=== PATIENT | female | born 1975 | race Caucasian/White ===

== ENCOUNTER 2017-08-03 20:02 | Emergency (ER) | payer SELFPAY ==
[~2017-08-03] VITALS: Ht 167.6 cm; Wt 92.5 kg
--- NOTE | 2017-08-03 20:38 | ED Upper Extremity ---
General Chief Complaint: Upper Extremity Stated Complaint: L ARM PAIN Nursing Triage Note: PATIENT STATES THAT SHE HAD 2 SEIZURES TODAY. THE LAST ONE WAS WITNESSED BY THE FAMILY MEMBERS AND THEY STATES THAT SHE WAS "SQUEEZED AND LOWERED TO THE FLOOR. " THEY ARE UNSURE HOW SHE INJURED HER ARM. PATIENT STATES SHE HAS PAIN IN HER LEFT ARM FROM HER SHOULDER TO HER FINGER TIPS. MOTHER ALSO STATES THEY ARE VERY UNHAPPY THAT SHE DOES NOT QUALIFY FOR DISABILITY. Nursing Sepsis Screen: No Definite Risk (LANA BURTON) Source: patient Exam Limitations: no limitations (HARLEY BHANDARI MD) History of Present Illness Date Seen by Provider: August 03, 2017 Time Seen by Provider: 20:37 Initial Comments To ER with complaints of left arm pain. She reports having 2 seizures today one at approximately 5 this morning and one at 5 this evening. She thinks the pain is from her nephew's turning her to her side during her seizure. She reports that she had been taking Briviact 50 mg that was prescribed in [place] but has recently moved to [facility] and ran out of that yesterday. She was seen at [facility] today around 5:30 was prescribed Dep[address]ote by Dr. Kaba and took her first dose this evening. Severity: mild Pain/Injury Location: left arm, left forearm Method of Injury: unknown Modifying Factors: Improves With Immobilization (LANA BURTON) Pain/Injury Location: left shoulder Method of Injury: other (associated with seizure and being assisted to ground by family members) (HARLEY BHANDARI MD) Allergies and Home Medications Allergies Coded Allergies: No Known Drug Allergies (Unverified , 08/03/17) Home Medications Hydrocodone/Acetaminophen 1 Each Tablet, 1 EACH PO Q4H PRN for PAIN-MODERATE TO SEVERE Prescribed by: LUCY WYNN on 08/03/17 0967 Patient Home Medication List Home Medication List Reviewed: Yes (LANA BURTON) Constitutional: see HPI EENTM: see HPI Respiratory: see HPI Cardiovascular: see HPI Gastrointestinal: see HPI Genitourinary: see HPI Musculoskeletal: see HPI, other (left arm pain) Skin: see HPI Psychiatric/Neurological: See HPI (follow him him) (LANA BURTON) Musculoskeletal: joint pain, muscle pain (HARLEY BHANDARI MD) All Other Systems Reviewed Negative Unless Noted: Yes (BERNOT,LANA STUDENT) Past Pvbpwbi-Jeqgfn-Htdjoo Hx Past Med/Social Hx: Reviewed Nursing Past Med/Soc Hx (LANA BURTON STUDENT) Patient Social History Alcohol Use: Denies Use Recreational Drug Use: No Smoking Status: Never a Smoker 2nd Hand Smoke Exposure: No Recent Foreign Travel: No Contact w/Someone Who Travel: No Recent Infectious Disease Expo: No Recent Hopitalizations: No Physical Abuse: No Sexual Abuse: No (LANA BURTON) Seasonal Allergies Seasonal Allergies: Yes (LANA BURTON STUDENT) Past Medical History Surgeries: Yes (UTERINE PROCEDURE) Respiratory: No Cardiac: No Neurological: Yes Seizure Disorder Genitourinary: No Gastrointestinal: No Musculoskeletal: No Endocrine: No HEENT: No Cancer: No Psychosocial: No Nursing Suicide Risk Score: 0 Blood Disorders: No (LANA BURTON STUDENT) Family Medical History Reviewed Nursing Family Hx (LANA BURTON) No Pertinent Family Hx (HARLEY BHANDARI MD) Physical Exam Vital Signs Vital Signs - First Documented 08/03/17 08/03/17 20:08 21:20 Temp 97.1 Pulse 83 Resp 18 B/P (MAP) 153/102 (119) Pulse Ox 96 O2 Delivery Nasal Cannula O2 Flow Rate 2.00 (HARLEY BHANDARI MD) Vital Signs Capillary Refill : Less Than 3 Seconds (LANA BURTON) General Appearance: WD/WN, no apparent distress HEENT: PERRL/EOMI, normal ENT inspection, TMs normal, pharynx normal Neck: non-tender, full range of motion, supple, normal inspection Cardiovascular: regular rate, rhythm, no edema, no gallop, no JVD, no murmur Respiratory: chest non-tender, lungs clear, normal breath sounds, no respiratory distress, no accessory muscle use Gastrointestinal: normal bowel sounds, non tender, soft, no organomegaly, no pulsatile mass Back: normal inspection, no CVA tenderness, no vertebral tenderness Shoulder: normal inspection (left), pain Elbow/Forearm: normal inspection (left), pain Wrist: Yes normal inspection (left), Yes pain Hand: normal inspection, Left Neurologic/Tendon: normal sensation, normal motor functions, normal tendon functions, responds to pain Neurologic/Psychiatric: no motor/sensory deficits, alert, normal mood/affect, oriented x 3 Skin: normal color, warm/dry Lymphatic: no adenopathy (LANA BURTON STUDENT) Shoulder: deformity (left bicep is flat in appearance and palpation), limited ROM, soft tissue tenderness Elbow/Forearm: Left, limited ROM (pain limited) Neurologic/Tendon: normal sensation, normal motor functions, normal tendon functions (HARLEY BHANDARI MD) Procedures/Interventions Patient Education: Explained Benefits, Explained Risks, Pt. Ack. Understanding Agreement on procedure with pt: Yes Breath Sounds per Auscultation: Clear Heart Sounds per Auscultation: Regular Airway Exam: Mouth opens >2 fingers, Neck Full Range of Motion, Visulation of Uvula Sedation Adminstration Time: 21:31 Total Time spent in CS 20 Re-examination Time: 22:20 Re-examination Tolerated procedure well without complications. No evidence of hypoxia or hypercarbia. Drinking water now and talking without difficulty. Versed total 5 mg IV and fentanyl total 150 g IV use for sedation. (HARLEY BHANDARI MD) Splinting and Joint Reduction : Pre-Proc Neuro Vasc Exam: normal Post-Proc Neuro Vasc Exam: normal Joint Reduction Site: shoulder (L) Reduction Attempts: 1 Pre-Procedure NV Exam: Yes post joint reduction film: joint reduced Progress under conscious sedation the joint was reduced. Patient was attached to a monitor and storage bin tender and end-tidal CO2 monitor.patient given initially 50 g of fentanyl and 2.5 mg of Versed. This did not achieve adequate sedation. She was then given an additional 2.5 mg of Versed and 50 g of fentanyl. She then required a third dose of 50 g of fentanyl. We were at this point able to reduce the shoulder with traction and external rotation. Post reduction films confirmed reduction. Distally she remains neurovascularly intact.He was placed in a shoulder immobilizer. RT in the room at this time.Dr. Bhandari in the room during the reduction at all times. Immobilizers: Large Shoulder (LUCY WYNN APRN) Progress/Results/Core Measures Results/Orders My Orders Orders - HARLEY BHANDARI MD Forearm, Left, 2 Views (08/03/17 20:39) Humerus, Left, 2 Views (08/03/17 20:39) Midazolam Injection (Versed Injection) (08/03/17 21:15) Fentanyl Injection (Sublimaze Injection (08/03/17 21:15) Fentanyl Injection (Sublimaze Injection (08/03/17 21:41) Shoulder, Left, 1 View (08/03/17 21:41) (HARLEY BHANDARI MD) Vital Signs/I&O 08/03/17 08/03/17 08/03/17 08/03/17 20:08 21:20 21:23 21:30 Temp 97.1 98.6 98.6 Pulse 83 82 84 Resp 18 20 20 B/P (MAP) 153/102 (119) 148/95 156/103 Pulse Ox 96 95 97 O2 Delivery Nasal Cannula Room Air Nasal Cannula O2 Flow Rate 2.00 2.00 08/03/17 08/03/17 08/03/17 08/03/17 21:40 21:50 22:00 22:10 Temp 98.6 97.9 97.9 98.6 Pulse 86 79 85 91 Resp 18 24 25 20 B/P (MAP) 131/85 117/72 120/81 132/93 Pulse Ox 97 94 98 95 O2 Delivery Nasal Cannula Nasal Cannula Nasal Cannula Room Air O2 Flow Rate 2.00 2.00 2.00 (HARLEY BHANDARI MD) Blood Pressure Mean: 119 Progress Progress Note : Progress Note Seen and evaluated the patient and agree with above except as indicated. I have directed the plan of care. Patient had seizure twice today including one time at the clinic. She is off her previous medicine and has started Depakote this evening. Complains of pain from the left neck through the left hand. Unable to really identify exactly where the pain is at this time but states a 10 out of 10. Requesting x-ray of her entire arm. We will get x-rays of the humerus and forearm which will allow evaluation of the joints above and below was well. 2100: Dislocation fracture left shoulder noted. Did discuss with the patient and family. She has elected for conscious sedation and reduction. Risks and benefits discussed and consent on chart. We will use fentanyl and Versed for sedation as this will provide adequate pain control and reduce seizure risk. I did discuss the case with Dr. Glover, on-call for [facility] and she will assist in follow-up at the clinic with the orthopedic practitioner there. Conscious sedation by me with reduction by Lucy Wynn APRN and Lana Burton APRN. (HARLEY BHANDARI MD) Diagnostic Imaging Diagonstic Imaging: Xray Plain Films/CT/US/NM/MRI: other Comments [place]IA [place], [place] NAME: MAURISIO BARNES [facility] REC#: [id number] PT STATUS: REG ER : 1975 PHYSICIAN: HARLEY BHANDARI MD ADMIT DATE: 08/03/17/ER Draft Date of Exam:08/03/17 HUMERUS, LEFT, 2 VIEWS INDICATION: Seizure Two views of the left humerus show anterior dislocation with a Hill-Sachs deformity of the proximal lateral humeral head. IMPRESSION: There is fracture dislocation present. Dictated on workstation # [id number] Dict: 08/03/172099 Trans: 08/03/172102 [facility] [id number] Interpreted by: CEDRICK LEE MD Electronically signed by: Reviewed: Reviewed by Me Diagonstic Imaging: Xray Plain Films/CT/US/NM/MRI: forearm Comments [place] NAME: MAURISIO BARNES [facility] REC#: [id number] PT STATUS: REG ER : 1975 PHYSICIAN: HARLEY BHANDARI MD ADMIT DATE: 08/03/17/ER Draft Date of Exam:08/03/17 FOREARM, LEFT, 2 VIEWS INDICATION: Seizure, left forearm pain. EXAMINATION: Two views of the left forearm were obtained. FINDINGS: No fracture, dislocation or other abnormality. IMPRESSION: Normal left forearm. Dictated on workstation # [id number] Dict: 08/03/172100 Trans: 08/03/172102 [facility] [id number] Interpreted by: CEDRICK LEE MD Electronically signed by: Reviewed: Reviewed by Me (HARLEY BHANDARI MD) Departure Impression Primary Impression: Closed anterior dislocation of left shoulder Qualified Codes: S43.015A - Anterior dislocation of left humerus, initial encounter Additional Impression: Hill Sachs deformity, left Disposition: 01 HOME, SELF-CARE Condition: Stable Departure-Patient Inst. Decision time for Depature: 21:45 (LUCY WYNN APRN) Referrals: DAPHNEY SOLIS MD (PCP/Family) Primary Care Physician Patient Instructions: Shoulder Dislocation Add. Discharge Instructions: 1. Keep the arm in the immobilizer at all times for one week or as directed otherwise by orthopedic nurse practitioner Sherwin Jones. [facility] will call you tomorrow to set up an appointment with Sherwin Jones for reevaluation of your shoulder. Take the pain medication as directed, ice packs to the shoulder at 1-2 hour intervals a couple of times per day. Pain medication as directed.All discharge instructions reviewed with patient and/or family. Voiced understanding. Scripts Hydrocodone/Acetaminophen ([place] 5-325 Tablet) 1 Each Tablet 1 EACH PO Q4H PRN for PAIN-MODERATE TO SEVERE, #14 TAB Prov: LUCY WYNN APRN 08/03/17 Copy Copies To 1: MARCE GLOVER TRAVIS STUDENT August 03, 2017 20:38 HARLEY BHANDARI MD August 03, 2017 21:21 LUCY WYNN APRN August 03, 2017 21:44
--- NOTE | 2017-08-03 21:03 | Diagnostic Imaging Report ---
INDICATION: Seizure, left forearm pain. EXAMINATION: Two views of the left forearm were obtained. FINDINGS: No fracture, dislocation or other abnormality. IMPRESSION: Normal left forearm. Dictated by: Dictated on workstation # [id number]
--- NOTE | 2017-08-03 21:03 | Diagnostic Imaging Report ---
INDICATION: Seizure Two views of the left humerus show anterior dislocation with a Hill-Sachs deformity of the proximal lateral humeral head. IMPRESSION: There is fracture dislocation present. Dictated by: Dictated on workstation # [id number]
[2017-08-03] MEDS ORDERED: fentaNYL INJECTION 100 MCG/2 ML AMP IVP ONE (21:15)
[2017-08-03] MEDS ORDERED: MIDAZOLAM 5 MG/5 ML (VERSED) VIAL IVP ONE (21:15)
[2017-08-03] MEDS ORDERED: fentaNYL INJECTION 100 MCG/2 ML AMP IVP STA (21:41)
[2017-08-03] MEDS ORDERED: HYDR-757 PO (21:47)
[2017-08-03] MEDS ORDERED: RX-HYDROCODONE/APAP 5/325 MG #4 TAB PK PO PRN (22:00)
[2017-08-03 22:48] VITALS: BP 129/86
--- NOTE | 2017-08-04 07:23 | Diagnostic Imaging Report ---
EXAM: SHOULDER, LEFT, 1 VIEW INDICATION: Left shoulder dislocation. COMPARISON: Humerus radiographs, 08/03/2017. FINDINGS: Interval reduction of the left humeral head which is now within the glenoid fossa. Large Hill-Sachs deformity. Mild widening of the acromioclavicular joints may represent a low grade AC separation. Soft tissue shadows are unremarkable. IMPRESSION: 1. Interval reduction of the left shoulder dislocation. 2. Large Hill-Sachs deformity. 3. Mild widening of the acromioclavicular joint may represent a low-grade separation. Dictated by: Dictated on workstation # [id number]
== END 2017-08-03 22:48 | disposition home or self-care (01) ==
LOC: EDUNIT# 20:02 → ER 20:05
DX: S43.015A Anterior dislocation of left humerus, initial encounter (principal); G40.909 Epilepsy, unspecified, not intractable, without status epilepticus; X58.XXXA Exposure to other specified factors, initial encounter
CPT/HCPCS: 23655; 73020; 73060; 73090; 93041; 96374; 96375

== ENCOUNTER 2018-01-13 19:42 | Emergency (ER) | payer MEDICAID, OTHER ==
[~2018-01-13] VITALS: Ht 167.6 cm; Wt 92.5 kg
[~2018-01-13 19:42] MED LIST: HYDR-4226 PO
--- OUTSIDE RECORDS SUMMARY | 2018-01-13 19:47 | XMS REPORT ---
Author Author DAPHNEY SOLIS [facility] Address [address] [place] [address] Care Team Providers Care Ammonia Box Operator Name Role Phone DAPHNEY SOLIS Unavailable PROBLEMS Type Condition ICD9-CM Code OPD44-GO Code Onset Dates Condition Status SNOMED Code Problem Seizure disorder G40.909 Active 937030712 ALLERGIES Substance Reaction Event Type Date Status Mila hives Drug Allergy Nov, Active ENCOUNTERS Encounter Location Date Diagnosis [place] [address] [address] Nov, Seizure disorder G40.909 [place] [address] [address] Nov, [place] [address] [address] Oct, Anterior dislocation of left shoulder, subsequent encounter S43.015D [place] [address] [address] Sep, Seizure disorder G40.909 [place] [address] [place] [id number] [place] [address] Sep, Seizure disorder G40.909 [place] [address] [place] [id number] [place] [address] Aug, Anterior dislocation of left shoulder, initial encounter S43.015A [facility] [address] [address] Aug, Abrasions of multiple sites T07.XXXA [place] [address] [address] Aug, Seizure disorder G40.909 [facility] [address] [id number] [id number] 13 Aug, 2017 Dental caries K02.9 [facility] [id number] [place] [id number] 06 Aug, 2017 Dental examination Z01.20 [facility] [id number] [place] [address] 04 Aug, 2017 Closed dislocation of left shoulder, initial encounter S43.005A and Seizure disorder G40.909 [facility] [id number] [place] [address] Aug, [facility] [id number] [place] [address] Aug, [facility] [id number] [place] [address] July, [facility] [id number] [place] [address] July, [facility] [address] [place] [address] July, Seizure disorder G40.909 [facility] [id number] [place] [address] July, Seizure disorder G40.909 [facility] [address] [place] [address] July, Seizure disorder G40.909 [facility] [address] [place] [address] July, Dental examination Z01.20 [facility] [id number] [place] [address] July, Viral upper respiratory tract infection J06.9 ; Disorder of teeth and supporting structures, unspecified K08.9 and Other chronic pain G89.29 [facility] [id number] [place] [address] Jun, [facility] [place] [facility] [address] [id number] [place] [address] 13 Jun, 2014 [facility] [place] [facility] [address] [id number] [place] [address] 10 Nov, 2011 [facility] [place] [facility] [address] [id number] [place] [address] 10 Oct, 2011 [facility] [place] [facility] [address] [id number] [place] [address] 14 Aug, 2011 [facility] [place] [facility] [address] [id number] [place] [address] 13 Aug, 2011 [facility] [place] [facility] [address] [id number] [place] [address] Aug, [facility] [place] [facility] [address] [id number] [place] [address] 08 Aug, 2011 [facility] [place] [facility] [address] [id number] [place] [address] 05 Aug, 2011 [facility] [place] [facility] [address] [id number] [place] [address] July, [facility] [place] [facility] [address] [id number] [place] [address] July, [facility] [place] [facility] [address] [id number] [place] [address] July, [facility] [place] [facility] [address] [id number] [place] [address] July, [facility] [place] [facility] [address] [id number] [place] [address] Jun, [facility] [place] [facility] [address] [id number] [place] [address] Jun, [facility] [place] [facility] [address] [id number] [place] [address] 08 Jun, 2011 [facility] [place] [facility] [address] [facility] [id number] [place] [address] Jun, [facility] [address] [facility] [id number], [place] [address] Jun, [facility] [address] [facility] [id number], [place] [address] Jun, [facility] [address] [facility] [id number], [place] [address] Jun, [facility] [address] [facility] [id number], [place] [address] Feb, IMMUNIZATIONS No Known Immunizations SOCIAL HISTORY Never Assessed REASON FOR VISIT f/u seizure medication Sherie SOTO, eeg & mri in on 12/06/17 Sherie SOTO, sleep study 12/08/17 HI Rehman MA PLAN OF CARE Activity Details Follow Up 3 Months Reason: VITAL SIGNS Height 66 in 2017-12-01 Weight 205 lbs 2017-12-01 Temperature 97.3 degrees Fahrenheit 2017-12-01 Heart Rate 78 bpm 2017-12-01 Respiratory Rate 18 2017-12-01 BMI 33.08 kg/m2 2017-12-01 Blood pressure systolic 124 mmHg 2017-12-01 Blood pressure diastolic 78 mmHg 2017-12-01 MEDICATIONS Medication Instructions Dosage Frequency Start Date End Date Duration Status Depakote 250 MG Orally 3 times a day 1 tablet 8h 30 Active Lamotrigine 100 mg Orally 2 times a day 2.5 tablets 12h 30 Active Lamotrigine 200 mg Orally Twice a day 1 tablet 12h 26 Nov, 2017 90 days Active RESULTS No Results PROCEDURES No Known procedures INSTRUCTIONS MEDICATIONS ADMINISTERED No Known Medications MEDICAL (GENERAL) HISTORY Type Description Date Medical History epilepsy Medical History seizures Surgical History 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
--- OUTSIDE RECORDS SUMMARY | 2018-01-13 19:47 | XMS REPORT ---
Author Author DAPHNEY SOLIS [facility] Address [address] [place] [address] Care Team Providers Care Ice Carver Name Role Phone DAPHNEY SOLIS Unavailable PROBLEMS Type Condition ICD9-CM Code RQU67-CI Code Onset Dates Condition Status SNOMED Code Problem Seizure disorder G40.909 Active 756776276 ALLERGIES No Information ENCOUNTERS Encounter Location Date Diagnosis [place] [address] [address] Jan, [place] [address] 9[address]- 7784 Jan, [place] [address] 18499- 4537 Jan, Viral gastroenteritis A08.4 [place] [address] 28551- 1634 Nov, Seizure disorder G40.909 [place] [address] [place] [id number] [place] [address] 23590- 4134 Nov, [place] [address] 38314- 2071 Oct, Anterior dislocation of left shoulder, subsequent encounter S43.015D [facility] [address] [place] [id number] [place] [address] 16298- 2514 Sep, Seizure disorder G40.909 [place] [address] [place] [place] [id number] [place] [address] 65386- 9960 Sep, Seizure disorder G40.909 [facility] [address] [place] [id number] [place] [address] 50552- 1251 Aug, Anterior dislocation of left shoulder, initial encounter S43.015A [facility] [address] [place] [address] 53717 -4412 16 Aug, 2017 Abrasions of multiple sites T07.XXXA [facility] [address] [place] [id number] [place] [address] 63677- 1505 15 Aug, 2017 Seizure disorder G40.909 [facility] [id number] [place] [address] [id number] 13 Aug, 2017 Dental caries K02.9 [facility] [address] [id number] [place] [address] [id number] 06 Aug, 2017 Dental examination Z01.20 [facility] [address] 65794- 8460 Aug, Closed dislocation of left shoulder, initial encounter S43.005A and Seizure disorder G40.909 [facility] [address] 61438- 3531 Aug, [facility] [address] [id number] [place] [address] 65100- 2706 Aug, [facility] [address] 86460- 7250 July, [facility] [address] [place] [id number] [place] [address] 58693- 6455 July, [facility] [address] [place] [id number] [place] [address] 78818- 8971 July, Seizure disorder G40.909 [facility] [address] [place] [id number] [place] [address] 00089- 4588 July, Seizure disorder G40.909 [facility] [address] [place] [id number] [place] [address] 10235- 1629 July, Seizure disorder G40.909 [facility] [address] [place] [id number] [place] [address] 10241- 4634 July, Dental examination Z01.20 [facility] [address] [facility] [id number] [address] 10 Jul, 2017 Viral upper respiratory tract infection J06.9 ; Disorder of teeth and supporting structures, unspecified K08.9 and Other chronic pain G89.29 [facility] [address] [facility] [id number] [place] [address]- 9911 14 Jun, 2014 [facility] [address] [facility] [id number] [place] [address]- 2598 13 Jun, 2014 [facility] [address] [facility] [id number] [place] [address]- 1025 10 Nov, 2011 [facility] [id number] [place] [address] 5359 10 Oct, 2011 [facility] [id number] [place] [address]- 2988 14 Aug, 2011 [facility] [id number] [place] [address]- 0346 13 Aug, 2011 [facility] [id number] [place] [address]- 3356 Aug, [facility] [address], [place] [address] 3200 08 Aug, 2011 [facility] [address] [address]- 5340 05 Aug, 2011 [facility] [address] [address]- 6567 July, [facility] [address] [place] [id number] [address] 3894 July, [facility] [address] 4[address] July, [facility] [address] [place] [id number] [address]- 6196 July, [facility] [address], [place] [address]- 4038 Jun, [facility] [address] [place] [id number] [address]- 2214 Jun, [facility] [address], [place] [address]- 4982 Jun, [facility] [id number] 2339 Jun, [facility] [address] [place] [id number] [place] [address] 615115- 8960 Jun, [facility] [address], [place] [address]- 2333 Jun, [facility] [address], [place] [address]- 3629 Jun, [facility] [address], [place] [address]- 5867 Feb, IMMUNIZATIONS No Known Immunizations SOCIAL HISTORY Never Assessed REASON FOR VISIT Medication question PLAN OF CARE VITAL SIGNS MEDICATIONS Unknown Medications RESULTS No Results PROCEDURES No Known procedures INSTRUCTIONS MEDICATIONS ADMINISTERED No Known Medications MEDICAL (GENERAL) HISTORY Type Description Date Medical History epilepsy Medical History seizures Surgical History 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
--- OUTSIDE RECORDS SUMMARY | 2018-01-13 19:47 | XMS REPORT ---
Author Author WILLIE DANG Organization [facility] Address [address] [place] [address] Care Team Providers Care Clay Pigeon Setter Name Role Phone WILLIE DANG Unavailable PROBLEMS Type Condition ICD9-CM Code [id number] Code Onset Dates Condition Status SNOMED Code Problem Seizure disorder G40.909 Active [id number] ALLERGIES Substance Reaction Event Type Date Status Mila hives Drug Allergy Jan, Active ENCOUNTERS Encounter Location Date Diagnosis [place] [id number] [address] Jan, Viral gastroenteritis A08.4 [facility] [address] 567[address]- 2695 Nov, Seizure disorder G40.909 [facility] [address] 93537- 2107 Nov, [facility] [address] 32822- 3040 Oct, Anterior dislocation of left shoulder, subsequent encounter S43.015D [place] [address] [place] [id number] [place] [address] 75332- 3782 Sep, Seizure disorder G40.909 [facility] [address] [place] [id number] [place] [address] 89971- 2420 Sep, Seizure disorder G40.909 [facility] [address] [place] [id number] [place] [address] 13562- 9915 Aug, Anterior dislocation of left shoulder, initial encounter S43.015A [facility] [address] [place] [id number] [place] [address] 25979 -9009 16 Aug, 2017 Abrasions of multiple sites T07.XXXA [place] [address] [place] [address] 36816- 3629 15 Aug, 2017 Seizure disorder G40.909 [facility] [address] [place] [id number] [place] [address] [id number] Aug, Dental caries K02.9 [facility] [address] [place] [id number] [place] [address] [id number] 06 Aug, 2017 Dental examination Z01.20 [facility] [address] [place] [id number] [place] [address] 76777- 4421 04 Aug, 2017 Closed dislocation of left shoulder, initial encounter S43.005A and Seizure disorder G40.909 [facility] [address] [place] [id number] [place] [address] 02600- 2209 Aug, [facility] [address] [place] [id number] [place] [address] 81950- 3716 Aug, [facility] [address] [place] [id number] [place] [address] 24220- 2538 July, [facility] [address] [place] [id number] [place] [address] 74104- 7472 July, [facility] [address] [place] [id number] [place] [address] 28955- 3355 July, Seizure disorder G40.909 [facility] [address] [place] [id number] [place] [address] 75161- 2730 July, Seizure disorder G40.909 [facility] [address] [place] [id number] [place] [address] 13220- 4677 July, Seizure disorder G40.909 [facility] [address] [place] [id number] [place] [address] 48279- 8333 July, Dental examination Z01.20 [facility] [address] [place] [address] 08388- 9191 July, Viral upper respiratory tract infection J06.9 ; Disorder of teeth and supporting structures, unspecified K08.9 and Other chronic pain G89.29 [facility] [address] [id number] [place] [address]- 4328 14 Jun, 2014 [facility] [address] [id number] [place] [address]- 6251 13 Jun, 2014 [facility] [address] [facility] [id number] [place] [address]- 2993 10 Nov, 2011 [facility] [address] [id number], [place] [address]- 4235 10 Oct, 2011 [facility] [address] [id number] [place] [address]- 9962 14 Aug, 2011 [facility] [address] [facility] [id number] [place] [address]- 9786 13 Aug, 2011 [facility] [address] [facility] [id number] [place] [address]- 8626 Aug, [facility] [address] [facility] [id number], [place] [address]- 5697 08 Aug, 2011 [facility] [address] [facility] [id number], [place] [address]- 5147 05 Aug, 2011 [facility] [address] [facility] [id number], [place] [address]- 4518 16 Jul, 2011 [facility] [address] [facility] [id number], [place] [address]- 7383 July, [facility] [address] [id number], [place] [address]- 7104 July, [facility] [place] [facility] [address] [facility] [id number], [place] [address]- 0978 July, [facility] [address] [facility] [id number], [place] [address]- 3427 11 Jun, 2011 [facility] [place] [facility] [address] [facility] [id number], [place] [address]- 5436 09 Jun, 2011 [facility] [address] [facility] [id number] [place] [address]- 7316 Jun, [facility] [address] [facility] [id number], [place] [address]- 5752 Jun, [facility] [address] [facility] [id number], [place] [address]- 9550 Jun, [facility] [address] [facility] [id number], [place] [address]- 2509 Jun, [facility] [address] [facility] [id number], [place] [address]- 8759 Jun, [facility] [address] [facility] [id number][place] 1425 Feb, IMMUNIZATIONS No Known Immunizations SOCIAL HISTORY Never Assessed REASON FOR VISIT vomiting, Constant throwing up, only ate once today and puked it up. - Michelet SOTO PLAN OF CARE VITAL SIGNS Height 66 in 2018-01-05 Weight 207 lbs 2018-01-05 Temperature 97.8 degrees Fahrenheit 2018-01-05 Heart Rate 79 bpm 2018-01-05 Respiratory Rate 20 2018-01-05 Oximetry 95 % 2018-01-05 BMI 33.41 kg/m2 2018-01-05 Blood pressure systolic 122 mmHg 2018-01-05 Blood pressure diastolic 70 mmHg 2018-01-05 MEDICATIONS Medication Instructions Dosage Frequency Start Date End Date Duration Status Zofran ODT 4 MG Orally every 4 hrs 1 tablet on the tongue and allow to dissolve as needed 4h Jan, Active Lamotrigine 200 mg Orally Twice a day 1 tablet 12h Nov, 90 days Active Depakote 250 MG Orally 3 times a day 1 tablet 8h 30 Active Lamotrigine 100 mg Orally 2 times a day 2.5 tablets 12h 30 Active RESULTS No Results PROCEDURES No Known procedures INSTRUCTIONS MEDICATIONS ADMINISTERED No Known Medications MEDICAL (GENERAL) HISTORY Type Description Date Medical History epilepsy Medical History seizures Surgical History 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
--- OUTSIDE RECORDS SUMMARY | 2018-01-13 19:47 | XMS REPORT ---
Author Author DAPHNEY SOLIS [facility] Address [address] [place] [address] Care Team Providers Care Brand Marketing Specialist Name Role Phone DAPHNEY SOLIS Unavailable PROBLEMS Type Condition ICD9-CM Code NTY86-SG Code Onset Dates Condition Status SNOMED Code Problem Seizure disorder G40.909 Active 268404902 ALLERGIES No Information ENCOUNTERS Encounter Location Date Diagnosis [place] [address] [address]- [address]80 Nov, Seizure disorder G40.909 [place] [address] 03284- 7558 Nov, [place] [address] 03388- 3964 Oct, Anterior dislocation of left shoulder, subsequent encounter S43.015D [place] [address] 78121- 8169 Sep, Seizure disorder G40.909 [facility] [address] 66[address]- 0359 Sep, Seizure disorder G40.909 [place] [address] 38515- 5980 Aug, Anterior dislocation of left shoulder, initial encounter S43.015A [facility] [address] 33147 -5344 16 Aug, 2017 Abrasions of multiple sites T07.XXXA [facility] [address] 18539- 5224 15 Aug, 2017 Seizure disorder G40.909 [facility] [address] [id number] 13 Aug, 2017 Dental caries K02.9 [facility] [address] [place] [address] [id number] 06 Aug, 2017 Dental examination Z01.20 [facility] [address] [address]- 3361 Aug, Closed dislocation of left shoulder, initial encounter S43.005A and Seizure disorder G40.909 [facility] [address] [place] [id number] [place] [address] 16704- 2516 Aug, [facility] [id number] [place] [address] 41845- 7506 Aug, [facility] [id number] [place] [address] 30314- 5643 July, [facility] [address] [id number] [place] [address] 86777- 8457 July, [facility] [address] [id number] [place] [address] 37224- 0969 July, Seizure disorder G40.909 [facility] [address] [place] [id number] [place] [address] 55283- 7530 July, Seizure disorder G40.909 [facility] [address] [address]- 1481 July, Seizure disorder G40.909 [facility] [address] [place] [address] 00648- 7935 July, Dental examination Z01.20 [facility] [address] [place] [address] 87857- 2615 July, Viral upper respiratory tract infection J06.9 ; Disorder of teeth and supporting structures, unspecified K08.9 and Other chronic pain G89.29 [facility] [address] [address]- 4486 Jun, [facility] [address] [place] [id number] [place] [address]- 8409 13 Jun, 2014 [facility] [address] [id number] [place] [address]- 4979 10 Nov, 2011 [facility] [address] [id number] [place] [address]- 0736 10 Oct, 2011 [facility] [address] [id number] [place] [address]- 1044 14 Aug, 2011 [facility] [address] [id number] [place] [address]- 2775 13 Aug, 2011 [facility] [address] [id number] [place] [address]- 3241 12 Aug, 2011 [facility] [address] [id number] [place] [address]- 7678 08 Aug, 2011 [facility] [address] [id number] [place] [address]- 3546 05 Aug, 2011 [facility] [address] [id number] [place] [address]- 4683 16 Jul, 2011 [facility] [address] [id number] [place] [address]- 9895 July, [facility] [address] [id number] [place] [address]- 8406 July, [facility] [address] [id number] [place] [address]- 0964 July, [facility] [address] [id number] [place] [address]- 6279 Jun, [facility] [address] [id number] [place] [address]- 3512 Jun, [facility] [address] [id number] [place] [address]- 6973 08 Jun, 2011 [facility] [address] [id number] [place] [address]- 3859 Jun, [facility] [address] [facility] [id number] [place] [address] 2546 Jun, [facility] [address] [facility] [id number] [address]- 2546 Jun, [facility] [address] [facility] [id number] [address]- 2546 Jun, [facility] [address] [facility] [id number] [place] [address]- 2546 Feb, IMMUNIZATIONS No Known Immunizations SOCIAL HISTORY Never Assessed REASON FOR VISIT Requests return call PLAN OF CARE VITAL SIGNS MEDICATIONS Medication Instructions Dosage Frequency Start Date End Date Duration Status Lamotrigine 100 mg Orally 2 times a day 1/2 tablet 12h 90 days Active Depakote 250 MG Orally 3 times a day 1 tablet 8h 90 days Active Lamotrigine 200 mg Orally Twice a day 1 tablet 12h Nov, 90 days Active RESULTS No Results PROCEDURES No Known procedures INSTRUCTIONS MEDICATIONS ADMINISTERED No Known Medications MEDICAL (GENERAL) HISTORY Type Description Date Medical History epilepsy Medical History seizures Surgical History 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
--- OUTSIDE RECORDS SUMMARY | 2018-01-13 19:47 | XMS REPORT ---
Author Author DAPHNEY SOLIS [facility] Address [address] [place] [address] Care Team Providers Care Mail Forwarding System Markup Clerk Name Role Phone DAPHNEY SOLIS Unavailable PROBLEMS Type Condition ICD9-CM Code ZUW88-EQ Code Onset Dates Condition Status SNOMED Code Problem Seizure disorder G40.909 Active [id number] ALLERGIES No Information ENCOUNTERS Encounter Location Date Diagnosis [place] [address] [address]- [address] Jan, [place] [address] 35347- 7966 Jan, [place] [address] 46910- 6151 Jan, Viral gastroenteritis A08.4 [place] [address] 59350- 7960 Nov, Seizure disorder G40.909 [place] [address] [place] [id number] [place] [address] 73007- 7641 Nov, [place] [address] 54850- 7504 Oct, Anterior dislocation of left shoulder, subsequent encounter S43.015D [facility] [address] [place] [id number] [place] [address] 99462- 5774 Sep, Seizure disorder G40.909 [place] [address] [place] [id number] [place] [address] 77335- 2911 Sep, Seizure disorder G40.909 [facility] [address] [place] [id number] [place] [address] 76961- 9997 Aug, Anterior dislocation of left shoulder, initial encounter S43.015A [facility] [address] [place] [address] 04860 -3383 16 Aug, 2017 Abrasions of multiple sites T07.XXXA [facility] [address] [place] [id number] [place] [address] 90529- 7208 15 Aug, 2017 Seizure disorder G40.909 [facility] [address] [place] [id number] [place] [address] [id number] 13 Aug, 2017 Dental caries K02.9 [facility] [address] [place] [id number] [place] [address] [id number] 06 Aug, 2017 Dental examination Z01.20 [facility] [address] 77967- 1983 Aug, Closed dislocation of left shoulder, initial encounter S43.005A and Seizure disorder G40.909 [facility] [address] 37530- 7666 Aug, [facility] [address] [place] [id number] [place] [address] 10134- 2052 Aug, [facility] [address] 45244- 5609 July, [facility] [address] [place] [id number] [place] [address] 35661- 1124 July, [facility] [address] [place] [id number] [place] [address] 85555- 6717 July, Seizure disorder G40.909 [facility] [address] [place] [id number] [place] [address] 47994- 2596 July, Seizure disorder G40.909 [facility] [address] [place] [id number] [place] [address] 55158- 3721 July, Seizure disorder G40.909 [facility] [address] [place] [id number] [place] [address] 13004- 8299 July, Dental examination Z01.20 [facility] [address] [facility] [id number] [address] 1582 10 Jul, 2017 Viral upper respiratory tract infection J06.9 ; Disorder of teeth and supporting structures, unspecified K08.9 and Other chronic pain G89.29 [facility] [address] [facility] [id number] [place] [address]- 0053 14 Jun, 2014 [facility] [address] [facility] [id number] [place] [address]- 5989 13 Jun, 2014 [facility] [address] [facility] [id number] [place] [address]- 0309 10 Nov, 2011 [facility] [id number] [place] [address]- 1052 10 Oct, 2011 [facility] [id number] [place] [address]- 6954 14 Aug, 2011 [facility] [id number] [place] [address]- 6722 13 Aug, 2011 [facility] [id number] [address]- 5205 Aug, [facility] [address] [address]- 7862 08 Aug, 2011 [facility] [address] [address]- 8662 05 Aug, 2011 [facility] [address] [address]- 5171 July, [facility] [address] [id number] [address]- 4594 July, [facility] [address] 0764 July, [facility] [address] [place] [id number] [address]- 5846 July, [facility] [address] [address]- 1534 Jun, [facility] [address] [id number] [address]- 2402 Jun, [facility] [address] [address]- 8673 Jun, [facility] [address] [address]- 0480 Jun, [facility] [address] [place] [id number] [place] [address] 82726- 4681 Jun, [facility] [address] [address]- 6651 Jun, [facility] [address] [address]- 1532 Jun, [facility] [address], [place] [address]- 1470 Feb, IMMUNIZATIONS No Known Immunizations SOCIAL HISTORY Never Assessed REASON FOR VISIT Urgent nurse call PLAN OF CARE VITAL SIGNS MEDICATIONS Unknown Medications RESULTS No Results PROCEDURES No Known procedures INSTRUCTIONS MEDICATIONS ADMINISTERED No Known Medications MEDICAL (GENERAL) HISTORY Type Description Date Medical History epilepsy Medical History seizures Surgical History 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
--- OUTSIDE RECORDS SUMMARY | 2018-01-13 19:48 | XMS REPORT ---
Author Author DAPHNEY SOLIS [facility] Address [address] [place] [address] Care Team Providers Care Director Patient Financial Services Name Role Phone DAPHNEY SOLIS Unavailable PROBLEMS Type Condition ICD9-CM Code YJC47-FT Code Onset Dates Condition Status SNOMED Code Problem Seizure disorder G40.909 Active [id number] ALLERGIES No Information ENCOUNTERS Encounter Location Date Diagnosis [address] [address]- 2098 Oct, Anterior dislocation of left shoulder, subsequent encounter S43.015D [address] 16899- 7964 Sep, Seizure disorder G40.909 [facility] [address] 34699- 3546 Sep, Seizure disorder G40.[address] 49112- 0851 Aug, Anterior dislocation of left shoulder, initial encounter S43.015A [facility] [address] 41233 -8264 16 Aug, 2017 Abrasions of multiple sites T07.XXXA [facility] [address] [place] [id number] [place] [address] 17558- 7702 15 Aug, 2017 Seizure disorder G40.909 [facility] [address] [id number] 13 Aug, 2017 Dental caries K02.9 [facility] [address] [id number] 06 Aug, 2017 Dental examination Z01.20 [facility] [address] [place] [address]- 2945 Aug, Closed dislocation of left shoulder, initial encounter S43.005A and Seizure disorder G40.909 [facility] [address] [place] [id number] [place] [address] 75084- 9232 Aug, [facility] [address] [place] [id number] [place] [address] 45054- 6542 Aug, [facility] [address] [place] [id number] [place] [address] 84114- 3443 July, [facility] [address] [place] [id number] [place] [address] 84648- 9592 July, [facility] [address] [place] [id number] [place] [address] 06177- 0263 July, Seizure disorder G40.909 [facility] [address] [place] [id number] [place] [address] 67784- 7629 July, Seizure disorder G40.909 [facility] [address] [place] [id number] [place] [address] 87894- 0010 July, Seizure disorder G40.909 [facility] [address] [place] [id number] [place] [address] 47776- 6841 July, Dental examination Z01.20 [facility] [address] [place] [id number] [place] [address] 34998- 8858 July, Viral upper respiratory tract infection J06.9 ; Disorder of teeth and supporting structures, unspecified K08.9 and Other chronic pain G89.29 [facility] [address] [place] [id number] [place] [address] 81758- 6835 Jun, [facility] [address] [place] [id number] [place] [address] 26543- 9958 Jun, [facility] [address] [place] [address] 84722- 2759 10 Nov, 2011 [facility] [address] [place] [id number] [place] [address] 84898- 9101 Oct, [facility] [address] [id number] [place] [address]- 2080 14 Aug, 2011 [facility] [place] [facility] [address] [id number] [place] [address]- 2254 13 Aug, 2011 [facility] [place] [facility] [address] [id number] [place] [address]- 4530 Aug, [facility] [place] [facility] [address] [id number] [place] [address]- 9944 08 Aug, 2011 [facility] [place] [facility] [address] [id number] [place] [address]- 2716 Aug, [facility] [place] [facility] [address] [id number] [place] [address]- 6461 July, [facility] [place] [facility] [address] [id number] [place] [address]- 4920 July, [facility] [place] [facility] [address] [id number] [place] [address]- 5925 July, [facility] [place] [facility] [address] [id number] [place] [address]- 7688 July, [facility] [place] [facility] [address] [id number] [place] [address]- 0477 Jun, [facility] [place] [facility] [address] [id number] [place] [address]- 2366 Jun, [facility] [place] [facility] [address] [id number] [place] [address]- 5490 Jun, [facility] [place] [facility] [address] [id number] [place] [address]- 3142 Jun, [facility] [place] [facility] [address] [id number] [place] [address]- 9533 Jun, [facility] [place] [facility] [address] [id number] [place] [address]- 3311 Jun, [facility] [place] [facility] [address] [facility] [id number] [place] [address]- 5417 Jun, [facility] [address] [facility] [id number]- 7550 Feb, IMMUNIZATIONS No Known Immunizations SOCIAL HISTORY Never Assessed REASON FOR VISIT PLAN OF CARE VITAL SIGNS MEDICATIONS Medication Instructions Dosage Frequency Start Date End Date Duration Status Depakote 250 MG Orally 3 times a day 1 tablet 8h July, Active RESULTS No Results PROCEDURES No Known procedures INSTRUCTIONS MEDICATIONS ADMINISTERED No Known Medications MEDICAL (GENERAL) HISTORY Type Description Date Medical History epilepsy Medical History seizures Surgical History 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
--- OUTSIDE RECORDS SUMMARY | 2018-01-13 19:48 | XMS REPORT ---
Author Author MIGUEL ROSS [facility] Address [address] [place] [address] Care Team Providers Care Electronic Components Assembler Name Role Phone MIGUEL ROSS Unavailable PROBLEMS Type Condition ICD9-CM Code IMK41-KR Code Onset Dates Condition Status SNOMED Code Problem Seizure disorder G40.909 Active [id number] ALLERGIES Substance Reaction Event Type Date Status Mila hives Drug Allergy Aug, Active ENCOUNTERS Encounter Location Date Diagnosis [place] [address] [address]- 1856 Oct, Anterior dislocation of left shoulder, subsequent encounter S43.015D [facility] [address] 77622- 1795 Sep, Seizure disorder G40.909 [facility] [address] 32980- 6650 Sep, Seizure disorder G40.909 [place] [address] 01672- 3111 Aug, Anterior dislocation of left shoulder, initial encounter S43.015A [facility] [address] [place] [id number] [place] [address] 64726 -2569 Aug, Abrasions of multiple sites T07.XXXA [facility] [address] 63620- 5190 15 Aug, 2017 Seizure disorder G40.909 [facility] [address] [place] [id number] [place] [address] [id number] 13 Aug, 2017 Dental caries K02.9 [facility] [address] [id number] Aug, Dental examination Z01.20 [facility] [address] [address]- 2417 Aug, Closed dislocation of left shoulder, initial encounter S43.005A and Seizure disorder G40.909 [facility] [address] [address]- 0580 Aug, [facility] [address] [place] [id number] [place] [address] 12803- 5152 Aug, [facility] [address] [place] [id number] [place] [address] 54231- 1200 July, [facility] [address] [place] [id number] [place] [address] 50024- 0861 July, [facility] [address] [place] [id number] [place] [address] 31775- 4676 July, Seizure disorder G40.909 [facility] [address] [place] [id number] [place] [address] 84305- 7923 July, Seizure disorder G40.909 [facility] [address] [place] [id number] [place] [address] 90234- 0840 July, Seizure disorder G40.909 [facility] [address] [place] [address] 49431- 6352 July, Dental examination Z01.20 [facility] [address] [id number] [address]- 0919 July, Viral upper respiratory tract infection J06.9 ; Disorder of teeth and supporting structures, unspecified K08.9 and Other chronic pain G89.29 [facility] [address] [place] [id number] [place] [address] 52772- 0445 Jun, [facility] [address] [address]- 9149 Jun, [facility] [address] [place] [id number] [place] [address] 82331- 2310 10 Nov, 2011 [facility] [place] [facility] [address] [id number] [place] [address]- 5127 Oct, [facility] [place] [facility] [address] [id number] [place] [address]- 0815 14 Aug, 2011 [facility] [place] [facility] [address] [id number] [place] [address]- 6054 Aug, [facility] [place] [facility] [address] [id number] [place] [address]- 6908 Aug, [facility] [place] [facility] [address] [id number] [place] [address]- 9639 Aug, [facility] [place] [facility] [address] [id number] [place] [address]- 7775 Aug, [facility] [place] [facility] [address] [id number] [place] [address]- 8330 July, [facility] [place] [facility] [address] [id number] [place] [address]- 1086 July, [facility] [place] [facility] [address] [id number] [place] [address]- 9525 July, [facility] [place] [facility] [address] [id number] [place] [address]- 7139 July, [facility] [place] [facility] [address] [id number] [place] [address]- 3339 Jun, [facility] [place] [facility] [address] [id number], [place] [address]- 2773 Jun, [facility] [place] [facility] [address] [id number] [place] [address]- 9526 Jun, [facility] [place] [facility] [address] [id number] [place] [address]- 7914 Jun, [facility] [place] [facility] [address] [id number] [place] [address]- 2646 Jun, [facility] [place] [facility] [address] [facility] [id number] [place] [address]- 7335 Jun, [facility] [address] [facility] [id number] [place] [address]- 9477 Jun, [facility] [address] [facility] [id number] [place] 1122 Feb, IMMUNIZATIONS No Known Immunizations SOCIAL HISTORY Never Assessed REASON FOR VISIT Fell at [employer] and thinks whoever owns this parking lot needs to pay for her fall [employer] PLAN OF CARE Activity Details Follow Up prn Reason: VITAL SIGNS Height 66 in 2017-08-19 Weight 198.6 lbs 2017-08-19 Temperature 97.8 degrees Fahrenheit 2017-08-19 Heart Rate 76 bpm 2017-08-19 Respiratory Rate 20 2017-08-19 BMI 32.05 kg/m2 2017-08-19 Blood pressure systolic 140 mmHg 2017-08-19 Blood pressure diastolic 90 mmHg 2017-08-19 MEDICATIONS Medication Instructions Dosage Frequency Start Date End Date Duration Status Hydrocodone-Acetaminophen 5-325 MG Orally 3 times a day 1 tablet as needed 8h Aug, Not-Taking Lamotrigine 100 MG Orally 2 times a day 2.5 tablets 12h Active Amoxicillin 500 mg Orally every 8 hrs 1 capsule 8h 07 days Active Depakote 500 mg Orally 2 times a day 1 12h July, Active Divalproex Sodium ER Active RESULTS No Results PROCEDURES No Known procedures INSTRUCTIONS MEDICATIONS ADMINISTERED No Known Medications MEDICAL (GENERAL) HISTORY Type Description Date Medical History epilepsy Medical History seizures Surgical History 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
--- OUTSIDE RECORDS SUMMARY | 2018-01-13 19:48 | XMS REPORT ---
Author Author DAPHNEY SOLIS [facility] Address [address] [place] [address] Care Team Providers Care Story Reader Name Role Phone DAPHNEY SOLIS Unavailable PROBLEMS Type Condition ICD9-CM Code AIY81-AS Code Onset Dates Condition Status SNOMED Code Problem Seizure disorder G40.909 Active 565756099 ALLERGIES No Information ENCOUNTERS Encounter Location Date Diagnosis [address] [address]- [address] Oct, Anterior dislocation of left shoulder, subsequent encounter S43.015D [address] [address]- 6433 Sep, Seizure disorder G40.909 [facility] [address] [address]- 4338 Sep, Seizure disorder G40.[address] 86[address]- 4619 Aug, Anterior dislocation of left shoulder, initial encounter S43.015A [facility] [address] [address] -3583 16 Aug, 2017 Abrasions of multiple sites T07.XXXA [facility] [address] [place] [id number] [place] [address] 63308- 7285 15 Aug, 2017 Seizure disorder G40.909 [facility] [address] [id number] 13 Aug, 2017 Dental caries K02.9 [facility] [address] [id number] 06 Aug, [address] [facility] [address] [place] [address]- 7930 Aug, Closed dislocation of left shoulder, initial encounter S43.005A and Seizure disorder G40.909 [facility] [id number] [place] [address] 06660- 6838 Aug, [facility] [id number] [place] [address] 25327- 4697 Aug, [facility] [id number] [place] [address] 68179- 6801 July, [facility] [id number] [place] [address] 26614- 4684 July, [facility] [id number] [place] [address] 33085- 8561 July, Seizure disorder G40.909 [facility] [address] [place] [place] [id number] [place] [address] 13382- 1228 July, Seizure disorder G40.909 [facility] [id number] [place] [address] 55241- 5580 July, Seizure disorder G40.909 [facility] [address] [place] [place] [id number] [place] [address] 96192- 5076 July, Dental examination Z01.20 [facility] [id number] [place] [address] 27579- 2893 July, Viral upper respiratory tract infection J06.9 ; Disorder of teeth and supporting structures, unspecified K08.9 and Other chronic pain G89.29 [facility] [id number] [place] [address] 02635- 5939 Jun, [facility] [id number] [place] [address] 91779- 4011 Jun, [facility] [address] [place] [address] 57211- 9866 10 Nov, 2011 [facility] [id number] [place] [address] 46460- 1012 Oct, [facility] [address] [id number] [place] [address]- 8299 14 Aug, 2011 [facility] [place] [facility] [address] [id number] [place] [address]- 8463 13 Aug, 2011 [facility] [place] [facility] [address] [id number] [place] [address]- 4174 Aug, [facility] [place] [facility] [address] [id number] [place] [address]- 5276 08 Aug, 2011 [facility] [place] [facility] [address] [id number] [place] [address]- 7592 Aug, [facility] [place] [facility] [address] [id number] [place] [address]- 4633 July, [facility] [place] [facility] [address] [id number] [place] [address]- 6564 July, [facility] [place] [facility] [address] [id number] [place] [address]- 2248 July, [facility] [place] [facility] [address] [id number] [place] [address]- 6273 July, [facility] [place] [facility] [address] [id number] [place] [address]- 4334 Jun, [facility] [place] [facility] [address] [id number] [place] [address]- 6979 Jun, [facility] [place] [facility] [address] [id number] [place] [address] Jun, [facility] [place] [facility] [address] [id number] [place] [address] Jun, [facility] [place] [facility] [address] [id number] [place] [address] Jun, [facility] [place] [facility] [address] [id number] [place] [address] Jun, [facility] [place] [facility] [address] [facility] [id number] [place] [id number] Jun, [facility] [address] [facility] [id number] [place] [id number] Feb, IMMUNIZATIONS No Known Immunizations SOCIAL HISTORY Never Assessed REASON FOR VISIT Repository Medication/samples PLAN OF CARE VITAL SIGNS MEDICATIONS Medication Instructions Dosage Frequency Start Date End Date Duration Status Lamotrigine 100 mg Orally 2 times a day 2.5 tablets 12h 30 days Active RESULTS No Results PROCEDURES No Known procedures INSTRUCTIONS MEDICATIONS ADMINISTERED No Known Medications MEDICAL (GENERAL) HISTORY Type Description Date Medical History epilepsy Medical History seizures Surgical History 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
--- OUTSIDE RECORDS SUMMARY | 2018-01-13 19:48 | XMS REPORT ---
Author Author DAPHNEY SOLIS [facility] Address [address] [place] [address] Care Team Providers Care Group Therapy Counselor Name Role Phone DAPHNEY SOLIS Unavailable PROBLEMS Type Condition ICD9-CM Code [id number] Code Onset Dates Condition Status SNOMED Code Problem Seizure disorder G40.909 Active 157274397 ALLERGIES Substance Reaction Event Type Date Status Mila hives Drug Allergy Aug, Active ENCOUNTERS Encounter Location Date Diagnosis [place] [address] [address] Oct, Anterior dislocation of left shoulder, subsequent encounter S43.015D [place] [address] [address] Sep, Seizure disorder G40.909 [facility] [address] [address] Sep, Seizure disorder G40.909 [place] [address] [address]- [address] Aug, Anterior dislocation of left shoulder, initial encounter S43.015A [facility] [address] [address] 16 Aug, 2017 Abrasions of multiple sites T07.XXXA [facility] [address] [address]- [address] 15 Aug, 2017 Seizure disorder G40.909 [facility] [address] [id number] 13 Aug, 2017 Dental caries K02.9 [facility] [address] [id number] 06 Aug, [address] [facility] [address] [address] Aug, Closed dislocation of left shoulder, initial encounter S43.005A and Seizure disorder G40.909 [facility] [address] [address] Aug, [facility] [address] [place] [id number] [place] [address]99- 9051 Aug, [facility] [address] [place] [id number] [place] [address]- 4420 July, [facility] [address] [place] [id number] [place] [address] 78559- 5011 July, [facility] [address] [place] [address] 95267- 8601 July, Seizure disorder G40.909 [facility] [address] [place] [id number] [place] [address] 15986- 9362 July, Seizure disorder G40.909 [facility] [address] [place] [id number] [place] [address] 49778- 7565 July, Seizure disorder G40.909 [facility] [address] [place] [address] 99624- 0253 July, Dental examination Z01.20 [facility] [address] [address] July, Viral upper respiratory tract infection J06.9 ; Disorder of teeth and supporting structures, unspecified K08.9 and Other chronic pain G89.29 [facility] [address] [place] [address] 42617- 4104 Jun, [facility] [address] [place] [id number] [place] [address] 24115- 5836 Jun, [facility] [address] [place] [address] 81863- 2733 Nov, [facility] [place] [facility] [address] [id number] [place] [address]- 6222 Oct, [facility] [place] [facility] [address] [id number] [place] [address]- 5957 14 Aug, 2011 [facility] [place] [facility] [address] [id number] [place] [address]- 6344 Aug, [facility] [place] [facility] [address] [id number] [place] [address]- 4252 Aug, [facility] [place] [facility] [address] [id number] [place] [address]- 2536 Aug, [facility] [place] [facility] [address] [id number] [place] [address]- 8926 Aug, [facility] [place] [facility] [address] [id number] [place] [address]- 6677 July, [facility] [place] [facility] [address] [id number] [place] [address]- 4936 July, [facility] [place] [facility] [address] [id number] [place] [address]- 8115 July, [facility] [place] [facility] [address] [id number] [place] [address]- 0096 July, [facility] [place] [facility] [address] [id number] [place] [address]- 5317 Jun, [facility] [place] [facility] [address] [id number] [place] [address]- 1053 Jun, [facility] [place] [facility] [address] [id number] [place] [address]- 6923 Jun, [facility] [place] [facility] [address] [id number] [place] [address]- 2639 Jun, [facility] [place] [facility] [address] [id number] [place] [address]- 8235 05 Jun, 2011 [facility] [place] [facility] [address] [id number] [place] [address] 101[address] Jun, [facility] [address] [facility] [id number] [place] [address] 25[address] Jun, [facility] [address] [facility] [id number] [place] [address]- 2546 Feb, IMMUNIZATIONS No Known Immunizations SOCIAL HISTORY Never Assessed REASON FOR VISIT [facility] Follow Up, PT had a siezer while here at [facility] and fell off of the table top dislocating her left shoulder on Monday-Darryl SOTO PT says while living in [place] she had a CAT scan showing multiple white spots on her Brain PLAN OF CARE Activity Details Follow Up 4 Weeks Reason: VITAL SIGNS Height 66 in 2017-08-07 Weight 200.8 lbs 2017-08-07 Temperature 98.8 degrees Fahrenheit 2017-08-07 Heart Rate 72 bpm 2017-08-07 Respiratory Rate 20 2017-08-07 BMI 32.41 kg/m2 2017-08-07 Blood pressure systolic 124 mmHg 2017-08-07 Blood pressure diastolic 78 mmHg 2017-08-07 MEDICATIONS Medication Instructions Dosage Frequency Start Date End Date Duration Status Depakote 500 mg Orally 2 times a day 1 12h July, Active Hydrocodone-Acetaminophen 5-325 MG Orally 3 times a day 1 tablet as needed 8h Aug, Active Lamotrigine 100 MG Orally 2 times a day 2.5 tablets 12h Active Briviact 50 mg Orally 2 times a day 1 tablet 12h 07 days Not-Taking RESULTS No Results PROCEDURES No Known procedures INSTRUCTIONS MEDICATIONS ADMINISTERED No Known Medications MEDICAL (GENERAL) HISTORY Type Description Date Medical History epilepsy Medical History seizures Surgical History 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
--- OUTSIDE RECORDS SUMMARY | 2018-01-13 19:48 | XMS REPORT ---
Author Author MYLES BAKER [facility] Address [address] [place] [address] Care Team Providers Care Terra Cotta Mold Maker Name Role Phone MYLES BAKER Unavailable PROBLEMS Type Condition ICD9-CM Code NLX47-OX Code Onset Dates Condition Status SNOMED Code Problem Seizure disorder G40.909 Active 389224277 ALLERGIES No Information ENCOUNTERS Encounter Location Date Diagnosis [address] [address] Oct, Anterior dislocation of left shoulder, subsequent encounter S43.015D [address] [address]- 2577 Sep, Seizure disorder G40.909 [facility] [address] [address]- [address] Sep, Seizure disorder G40.[address] [address]- [address]87 Aug, Anterior dislocation of left shoulder, initial encounter S43.015A [facility] [address] [address] 16 Aug, 2017 Abrasions of multiple sites T07.XXXA [facility] [address] [place] [id number] [place] [address] 26340- 8932 15 Aug, 2017 Seizure disorder G40.909 [facility] [address] [id number] 13 Aug, 2017 Dental caries K02.9 [facility] [address] [id number] 06 Aug, 2017 Dental examination Z01.20 [facility] [address] [place] [address]- 0939 Aug, Closed dislocation of left shoulder, initial encounter S43.005A and Seizure disorder G40.909 [facility] [address] [place] [id number] [place] [address] 60341- 5452 Aug, [facility] [address] [place] [id number] [place] [address] 28934- 6180 Aug, [facility] [address] [place] [id number] [place] [address] 01772- 4543 July, [facility] [address] [place] [id number] [place] [address] 54600- 6421 July, [facility] [address] [place] [id number] [place] [address] 40558- 0732 July, Seizure disorder G40.909 [facility] [address] [place] [id number] [place] [address] 47450- 4980 July, Seizure disorder G40.909 [facility] [address] [place] [id number] [place] [address] 78549- 6335 July, Seizure disorder G40.909 [facility] [address] [place] [id number] [place] [address] 82175- 8724 July, Dental examination Z01.20 [facility] [address] [place] [id number] [place] [address] 95317- 2599 July, Viral upper respiratory tract infection J06.9 ; Disorder of teeth and supporting structures, unspecified K08.9 and Other chronic pain G89.29 [facility] [address] [place] [id number] [place] [address] 90784- 1182 Jun, [facility] [address] [place] [id number] [place] [address] 18568- 4760 Jun, [facility] [address] [place] [address] 07394- 0415 10 Nov, 2011 [facility] [address] [place] [id number] [place] [address] 54965- 3846 Oct, [facility] [address] [id number] [place] [address]- 9849 14 Aug, 2011 [facility] [place] [facility] [address] [id number] [place] [address]- 7156 13 Aug, 2011 [facility] [place] [facility] [address] [id number] [place] [address]- 4348 Aug, [facility] [place] [facility] [address] [id number] [place] [address]- 2348 08 Aug, 2011 [facility] [place] [facility] [address] [id number] [place] [address]- 7539 Aug, [facility] [place] [facility] [address] [id number] [place] [address]- 1203 July, [facility] [place] [facility] [address] [id number] [place] [address]- 9162 July, [facility] [place] [facility] [address] [id number] [place] [address]- 7808 July, [facility] [place] [facility] [address] [id number] [place] [address]- 2397 July, [facility] [place] [facility] [address] [id number] [place] [address]- 8380 Jun, [facility] [place] [facility] [address] [id number] [place] [address]- 3857 Jun, [facility] [place] [facility] [address] [id number] [place] [address]- 2278 Jun, [facility] [place] [facility] [address] [id number] [place] [address]- 1119 Jun, [facility] [place] [facility] [address] [id number] [place] [address]- 6129 Jun, [facility] [place] [facility] [address] [id number] [place] [address]- 0484 Jun, [facility] [place] [facility] [address] [facility] [id number] [place] [address]- 0328 Jun, [facility] [address] [facility] [id number] [place] [address]- 6338 Feb, IMMUNIZATIONS No Known Immunizations SOCIAL HISTORY Never Assessed REASON FOR VISIT f/u Leila Antunez MA PLAN OF CARE Activity Details Follow Up prn Reason: VITAL SIGNS Height 66 in 2017-10-12 Blood pressure systolic 106 mmHg 2017-10-12 Blood pressure diastolic 78 mmHg 2017-10-12 MEDICATIONS Unknown Medications RESULTS No Results PROCEDURES No Known procedures INSTRUCTIONS MEDICATIONS ADMINISTERED No Known Medications MEDICAL (GENERAL) HISTORY Type Description Date Medical History epilepsy Medical History seizures Surgical History 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
--- OUTSIDE RECORDS SUMMARY | 2018-01-13 19:48 | XMS REPORT ---
Author Author ELDER RED [facility] Address Unknown Care Team Providers Care Electrification Adviser Name Role Phone ELDER RED Unavailable PROBLEMS Type Condition ICD9-CM Code YSY68-BS Code Onset Dates Condition Status SNOMED Code Problem Seizure disorder G40.909 Active 559332919 ALLERGIES Substance Reaction Event Type Date Status Mila hives Drug Allergy Aug, Active ENCOUNTERS Encounter Location Date Diagnosis [place] [address] [address] Oct, Anterior dislocation of left shoulder, subsequent encounter S43.015D [place] [address] [address]- 4358 Sep, Seizure disorder G40.909 [facility] [address] 72574- 8298 Sep, Seizure disorder G40.909 [place] [address] 48631- 0683 Aug, Anterior dislocation of left shoulder, initial encounter S43.015A [facility] [address] [address] -[address] 16 Aug, 2017 Abrasions of multiple sites T07.XXXA [facility] [address] [place] [id number] [place] [address] 92344- 9433 15 Aug, 2017 Seizure disorder G40.909 [facility] [address] [place] [id number] [place] [address] [id number] Aug, Dental caries K02.9 [facility] [address] [place] [id number] [place] [address] [id number] 06 Aug, 2017 Dental examination Z01.20 [facility] [address] [id number] [address]- 9083 Aug, Closed dislocation of left shoulder, initial encounter S43.005A and Seizure disorder G40.909 [facility] [address] [place] [id number] [place] [address] 06719- 8452 Aug, [facility] [address] [place] [id number] [place] [address] 27240- 5907 Aug, [facility] [address] [place] [id number] [place] [address] 33237- 3481 July, [facility] [address] [place] [id number] [place] [address] 11274- 4252 July, [facility] [address] [place] [id number] [place] [address] 25030- 5061 July, Seizure disorder G40.909 [facility] [address] [place] [id number] [place] [address] 61618- 2194 July, Seizure disorder G40.909 [facility] [address] [place] [id number] [place] [address] 28151- 6036 July, Seizure disorder G40.909 [facility] [address] [place] [id number] [place] [address] 53457- 4861 July, Dental examination Z01.20 [facility] [address] [place] [address] 13179- 7440 July, Viral upper respiratory tract infection J06.9 ; Disorder of teeth and supporting structures, unspecified K08.9 and Other chronic pain G89.29 [facility] [address] [place] [id number] [place] [address] 51821- 0671 Jun, [facility] [address] [place] [id number] [place] [address] 81387- 8199 Jun, [facility] [address] [place] [address] 50060- 2730 Nov, [facility] [address] [place] [id number] [place] [address], [place] [address]- 6647 10 Oct, 2011 [facility] [place] [facility] [address] [id number] [place] [address]- 1660 14 Aug, 2011 [facility] [place] [facility] [address] [id number] [place] [address]- 2336 13 Aug, 2011 [facility] [place] [facility] [address] [id number] [place] [address]- 0254 Aug, [facility] [place] [facility] [address] [id number] [place] [address]- 7697 08 Aug, 2011 [facility] [place] [facility] [address] [id number] [place] [address]- 5007 Aug, [facility] [place] [facility] [address] [id number] [place] [address]- 0227 July, [facility] [place] [facility] [address] [id number] [place] [address]- 0101 July, [facility] [place] [facility] [address] [id number] [place] [address]- 9993 July, [facility] [place] [facility] [address] [id number] [place] [address]- 6659 July, [facility] [place] [facility] [address] [id number] [place] [address]- 3438 Jun, [facility] [place] [facility] [address] [id number] [place] [address]- 1944 Jun, [facility] [place] [facility] [address] [id number] [place] [address]- 6989 Jun, [facility] [place] [facility] [address] [id number] [place] [address]- 6033 Jun, [facility] [place] [facility] [address] [id number] [place] [address]- 7025 Jun, [facility] [place] [facility] [address] [id number] [place] [address]- 2796 Jun, [facility] [place] [facility] [address] [facility] [id number] [place] [address]- 3457 Jun, [facility] [address] [facility] [id number], [place] [address]- 6450 Feb, IMMUNIZATIONS No Known Immunizations SOCIAL HISTORY Never Assessed REASON FOR VISIT te PLAN OF CARE Activity Details Follow Up prn Reason:STEPHANIE VITAL SIGNS Height 66 in 2017-08-16 Blood pressure systolic 138 mmHg 2017-08-16 Blood pressure diastolic 80 mmHg 2017-08-16 MEDICATIONS Medication Instructions Dosage Frequency Start Date End Date Duration Status Briviact 50 mg Orally 2 times a day 1 tablet 12h 07 days Not-Taking Amoxicillin 500 mg Orally every 8 hrs 1 capsule 8h 07 days Active Depakote 500 mg Orally 2 times a day 1 12h July, Active Lamotrigine 100 MG Orally 2 times a day 2.5 tablets 12h Active Divalproex Sodium ER Active Hydrocodone-Acetaminophen 5-325 MG Orally 3 times a day 1 tablet as needed 8h 04 Aug, 2017 Not-Taking RESULTS No Results PROCEDURES Procedure Date Ordered Result Body Site SURG REMOVAL ERUPTED TOOTH August 16, 2017 SURG REMOVAL ERUPTED TOOTH August 16, 2017 INSTRUCTIONS MEDICATIONS ADMINISTERED No Known Medications MEDICAL (GENERAL) HISTORY Type Description Date Medical History epilepsy Medical History seizures Surgical History 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
--- OUTSIDE RECORDS SUMMARY | 2018-01-13 19:48 | XMS REPORT ---
Author Author SHERWIN BAKER [facility] Address [address] [place] [address] Care Team Providers Care Learning Disabled Teacher Name Role Phone SHERWIN BAKER Unavailable PROBLEMS Type Condition ICD9-CM Code XLB57-XD Code Onset Dates Condition Status SNOMED Code Problem Seizure disorder G40.909 Active 604411315 ALLERGIES No Information ENCOUNTERS Encounter Location Date Diagnosis [address] [address] Oct, Anterior dislocation of left shoulder, subsequent encounter S43.015D [address] [address]- 4552 Sep, Seizure disorder G40.909 [facility] [address] [address]- 7351 Sep, Seizure disorder G40.[address] 125[address]- 4279 Aug, Anterior dislocation of left shoulder, initial encounter S43.015A [facility] [address] [address]0109 16 Aug, 2017 Abrasions of multiple sites T07.XXXA [facility] [address] [place] [id number] [place] [address] 05189- 2888 15 Aug, 2017 Seizure disorder G40.909 [facility] [address] [id number] 13 Aug, 2017 Dental caries K02.9 [facility] [address] [id number] 06 Aug, 2017 Dental examination Z01.20 [facility] [address] [place] [address]- 0067 Aug, Closed dislocation of left shoulder, initial encounter S43.005A and Seizure disorder G40.909 [facility] [address] [place] [id number] [place] [address] 89199- 9932 Aug, [facility] [address] [place] [id number] [place] [address] 22296- 0352 Aug, [facility] [address] [place] [id number] [place] [address] 45186- 7096 July, [facility] [address] [place] [id number] [place] [address] 78146- 8792 July, [facility] [address] [place] [id number] [place] [address] 76765- 4003 July, Seizure disorder G40.909 [facility] [address] [id number] [place] [address] 49172- 0563 July, Seizure disorder G40.909 [facility] [id number] [place] [address] 39775- 0493 July, Seizure disorder G40.909 [facility] [address] [id number] [place] [address] 04227- 5486 July, Dental examination Z01.20 [facility] [address] [place] [id number] [place] [address] 11091- 7265 July, Viral upper respiratory tract infection J06.9 ; Disorder of teeth and supporting structures, unspecified K08.9 and Other chronic pain G89.29 [facility] [id number] [place] [address] 09445- 4080 Jun, [facility] [id number] [place] [address] 87422- 5026 Jun, [facility] [address] [place] [address] 41386- 9583 10 Nov, 2011 [facility] [address] [id number] [place] [address] 75747- 1667 Oct, [facility] [address] [id number] [place] [address]- 4107 14 Aug, 2011 [facility] [place] [facility] [address] [id number] [place] [address]- 5725 13 Aug, 2011 [facility] [place] [facility] [address] [id number] [place] [address]- 5396 Aug, [facility] [place] [facility] [address] [id number] [place] [address]- 3977 08 Aug, 2011 [facility] [place] [facility] [address] [id number] [place] [address]- 7853 Aug, [facility] [place] [facility] [address] [id number] [place] [address]- 0172 July, [facility] [place] [facility] [address] [id number] [place] [address]- 4674 July, [facility] [place] [facility] [address] [id number] [place] [address]- 3878 July, [facility] [place] [facility] [address] [id number] [place] [address]- 3980 July, [facility] [place] [facility] [address] [id number] [place] [address]- 9999 Jun, [facility] [place] [facility] [address] [id number] [place] [address] Jun, [facility] [place] [facility] [address] [id number] [place] [address] Jun, [facility] [place] [facility] [address] [id number] [place] [address] Jun, [facility] [place] [facility] [address] [id number] [place] [address] Jun, [facility] [place] [facility] [address] [id number] [place] [address] Jun, [facility] [place] [facility] [address] [facility] [id number] [place] [address] Jun, [facility] [address] [facility] [id number] [place] [address] Feb, IMMUNIZATIONS No Known Immunizations SOCIAL HISTORY Never Assessed REASON FOR VISIT shoulder dislocation Consult. 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
--- OUTSIDE RECORDS SUMMARY | 2018-01-13 19:48 | XMS REPORT ---
Author Author DAPHNEY SOLIS [facility] Address [address] [place] [address] Care Team Providers Care Teacher Adventure Education Name Role Phone DAPHNEY SOLIS Unavailable PROBLEMS Type Condition ICD9-CM Code VSX06-XG Code Onset Dates Condition Status SNOMED Code Problem Seizure disorder G40.909 Active 716296422 ALLERGIES No Information ENCOUNTERS Encounter Location Date Diagnosis [address] [address] Oct, Anterior dislocation of left shoulder, subsequent encounter S43.015D [address] [address] Sep, Seizure disorder G40.909 [facility] [address] [address] Sep, Seizure disorder G40.[address] [address]- [address] Aug, Anterior dislocation of left shoulder, initial encounter S43.015A [facility] [address] [address] 16 Aug, 2017 Abrasions of multiple sites T07.XXXA [facility] [id number] [place] [address]- 4839 15 Aug, 2017 Seizure disorder G40.909 [facility] [address] [id number] 13 Aug, 2017 Dental caries K02.9 [facility] [address] [id number] 06 Aug, 2017 Dental examination Z01.20 [facility] [address] [place] [address] Aug, Closed dislocation of left shoulder, initial encounter S43.005A and Seizure disorder G40.909 [facility] [id number] [place] [address] 12174- 0496 Aug, [facility] [id number] [place] [address] 23313- 1335 Aug, [facility] [id number] [place] [address] 45118- 3861 July, [facility] [id number] [place] [address] 64475- 3208 July, [facility] [id number] [place] [address] 88498- 2775 July, Seizure disorder G40.909 [facility] [id number] [place] [address] 41766- 6317 July, Seizure disorder G40.909 [facility] [id number] [place] [address] 26823- 0604 July, Seizure disorder G40.909 [facility] [id number] [place] [address] 63079- 7275 July, Dental examination Z01.20 [facility] [id number] [place] [address] 00898- 4208 July, Viral upper respiratory tract infection J06.9 ; Disorder of teeth and supporting structures, unspecified K08.9 and Other chronic pain G89.29 [facility] [id number] [place] [address] 39419- 4375 Jun, [facility] [id number] [place] [address] 50965- 8467 Jun, [facility] [address] [place] [address] 28511- 6453 10 Nov, 2011 [facility] [id number] [place] [address] 22315- 6473 Oct, [facility] [address] [id number] [place] [address]- 0767 14 Aug, 2011 [facility] [place] [facility] [address] [id number] [place] [address]- 0596 13 Aug, 2011 [facility] [place] [facility] [address] [id number] [place] [address]- 4915 Aug, [facility] [place] [facility] [address] [id number] [place] [address]- 4180 08 Aug, 2011 [facility] [place] [facility] [address] [id number] [place] [address]- 7046 Aug, [facility] [place] [facility] [address] [id number] [place] [address]- 3563 July, [facility] [place] [facility] [address] [id number] [place] [address]- 5790 July, [facility] [place] [facility] [address] [id number] [place] [address]- 2324 July, [facility] [place] [facility] [address] [id number] [place] [address]- 6161 July, [facility] [place] [facility] [address] [id number] [place] [address]- 5620 Jun, [facility] [place] [facility] [address] [id number] [place] [address]- 5675 Jun, [facility] [place] [facility] [address] [id number] [place] [address]- 8064 Jun, [facility] [place] [facility] [address] [id number] [place] [address]- 9145 Jun, [facility] [place] [facility] [address] [id number] [place] [address]- 4335 Jun, [facility] [place] [facility] [address] [id number] [place] [address]- 3995 Jun, [facility] [place] [facility] [address] [facility] [id number] [place] [address] [address] Jun, [facility] [address] [facility] [id number] [address] Feb, IMMUNIZATIONS No Known Immunizations SOCIAL HISTORY Never Assessed REASON FOR VISIT Requests return call PLAN OF CARE VITAL SIGNS MEDICATIONS Medication Instructions Dosage Frequency Start Date End Date Duration Status Depakote 250 MG Orally 3 times a day 1 8h July, 30 days Active RESULTS No Results PROCEDURES No Known procedures INSTRUCTIONS MEDICATIONS ADMINISTERED No Known Medications MEDICAL (GENERAL) HISTORY Type Description Date Medical History epilepsy Medical History seizures Surgical History 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
--- OUTSIDE RECORDS SUMMARY | 2018-01-13 19:49 | XMS REPORT ---
Author Author DAPHNEY SOLIS [facility] Address [address] [place] [address] Care Team Providers Care Prototype Engineer Name Role Phone DAPHNEY SOLIS Unavailable PROBLEMS Type Condition ICD9-CM Code PEJ58-XI Code Onset Dates Condition Status SNOMED Code Problem Seizure disorder G40.909 Active [id number] ALLERGIES Substance Reaction Event Type Date Status Mila hives Drug Allergy July, Active ENCOUNTERS Encounter Location Date Diagnosis [facility] [address] [place] [address] 12604- 59[address] Oct, Anterior dislocation of left shoulder, subsequent encounter S43.015D [place] [address] [address] Sep, Seizure disorder G40.909 [facility] [address] [address]- 4277 Sep, Seizure disorder G40.909 [place] [address] [address]- 110[address] Aug, Anterior dislocation of left shoulder, initial encounter S43.015A [facility] [address] [address] 16 Aug, 2017 Abrasions of multiple sites T07.XXXA [facility] [address] [address]- [address] 15 Aug, 2017 Seizure disorder G40.909 [facility] [address] [id number] 13 Aug, 2017 Dental caries K02.9 [facility] [address] [id number] 06 Aug, 2017 Dental examination Z01.20 [facility] [address] [address] 28[address] Aug, Closed dislocation of left shoulder, initial encounter S43.005A and Seizure disorder G40.909 [facility] [address] [address]- 7212 Aug, [facility] [id number] [place] [address] 21558- 2135 Aug, [facility] [id number] [place] [address] 03605- 5015 July, [facility] [id number] [place] [address] 03962- 2200 July, [facility] [address] [place] [address] 20508- 7194 July, Seizure disorder G40.909 [facility] [id number] [place] [address] 26789- 6776 July, Seizure disorder G40.909 [facility] [id number] [place] [address] 34520- 7030 July, Seizure disorder G40.909 [facility] [address] [place] [address] 22102- 6692 July, Dental examination Z01.20 [facility] [address] [address]- 3365 July, Viral upper respiratory tract infection J06.9 ; Disorder of teeth and supporting structures, unspecified K08.9 and Other chronic pain G89.29 [facility] [address] [place] [address] 54590- 1877 Jun, [facility] [id number] [place] [address] 45291- 3509 Jun, [facility] [address] [place] [address] 49732- 9494 Nov, [facility] [place] [facility] [address] [id number] [place] [address]- 1131 Oct, [facility] [place] [facility] [address] [id number] [place] [address]- 0942 14 Aug, 2011 [facility] [place] [facility] [address] [id number] [place] [address]- 7746 Aug, [facility] [place] [facility] [address] [id number] [place] [address]- 4929 Aug, [facility] [place] [facility] [address] [id number] [place] [address]- 6448 Aug, [facility] [place] [facility] [address] [id number] [place] [address]- 2865 Aug, [facility] [place] [facility] [address] [id number] [place] [address]- 7145 July, [facility] [place] [facility] [address] [id number] [place] [address]- 5590 July, [facility] [place] [facility] [address] [id number] [place] [address]- 7311 July, [facility] [place] [facility] [address] [id number] [place] [address]- 7779 July, [facility] [place] [facility] [address] [id number] [place] [address]- 7596 Jun, [facility] [place] [facility] [address] [id number] [place] [address]- 2239 Jun, [facility] [place] [facility] [address] [id number] [place] [address]- 7729 Jun, [facility] [place] [facility] [address] [id number] [place] [address]- 6846 Jun, [facility] [place] [facility] [address] [id number] [place] [address]- 7380 05 Jun, 2011 [facility] [place] [facility] [address] [id number] [place] [address]- 5026 Jun, [facility] [address] [facility] [id number] [place] [address]- 2546 Jun, [facility] [address] [facility] [id number] [place] [address]- 2546 Feb, IMMUNIZATIONS No Known Immunizations SOCIAL HISTORY Never Assessed REASON FOR VISIT Establish Care, Dep of health stated the PT needed a Physical first to recieve a medical card and help. PT seems to be very upset due to her recently leaving her and living with her sister-Darryl SOTO PLAN OF CARE Activity Details Follow Up 3 Months Reason: VITAL SIGNS Height 66 in 2017-07-21 Weight 204.9 lbs 2017-07-21 Temperature 98.3 degrees Fahrenheit 2017-07-21 Heart Rate 76 bpm 2017-07-21 Respiratory Rate 18 2017-07-21 Oximetry 98 % 2017-07-21 BMI 33.07 kg/m2 2017-07-21 Blood pressure systolic 108 mmHg 2017-07-21 Blood pressure diastolic 72 mmHg 2017-07-21 MEDICATIONS Medication Instructions Dosage Frequency Start Date End Date Duration Status Lamotrigine 100 MG Orally 2 times a day 2.5 tablets 12h Active Briviact 50 MG Orally 2 times a day 1 tablet 12h Active RESULTS No Results PROCEDURES No Known procedures INSTRUCTIONS MEDICATIONS ADMINISTERED No Known Medications MEDICAL (GENERAL) HISTORY Type Description Date Medical History epilepsy Medical History seizures Surgical History 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
--- OUTSIDE RECORDS SUMMARY | 2018-01-13 19:49 | XMS REPORT ---
Author Author DAPHNEY SOLIS [facility] Address [address] [place] [address] Care Team Providers Care Broomcorn Grader Name Role Phone DAPHNEY SOLIS Unavailable PROBLEMS Type Condition ICD9-CM Code BAG43-UM Code Onset Dates Condition Status SNOMED Code Problem Seizure disorder G40.909 Active [id number] ALLERGIES No Information ENCOUNTERS Encounter Location Date Diagnosis [address] [address] Oct, Anterior dislocation of left shoulder, subsequent encounter S43.015D [address] [address]- 8743 Sep, Seizure disorder G40.909 [facility] [address] [address]- 0957 Sep, Seizure disorder G40.[address] 133[address]- 9892 Aug, Anterior dislocation of left shoulder, initial encounter S43.015A [facility] [address] [address] 16 Aug, 2017 Abrasions of multiple sites T07.XXXA [facility] [id number] [place] [address] 96710- 7491 15 Aug, 2017 Seizure disorder G40.909 [facility] [address] [id number] 13 Aug, 2017 Dental caries K02.9 [facility] [address] [id number] 06 Aug, 2017 Dental examination Z01.20 [facility] [address] [place] [address]- 6620 Aug, Closed dislocation of left shoulder, initial encounter S43.005A and Seizure disorder G40.909 [facility] [id number] [place] [address] 67585- 6699 Aug, [facility] [id number] [place] [address] 03727- 3645 Aug, [facility] [id number] [place] [address] 36126- 5362 July, [facility] [id number] [place] [address] 75479- 0110 July, [facility] [id number] [place] [address] 58660- 6805 July, Seizure disorder G40.909 [facility] [id number] [place] [address] 40297- 0707 July, Seizure disorder G40.909 [facility] [id number] [place] [address] 81984- 5750 July, Seizure disorder G40.909 [facility] [id number] [place] [address] 68381- 3334 July, Dental examination Z01.20 [facility] [id number] [place] [address] 74775- 9454 July, Viral upper respiratory tract infection J06.9 ; Disorder of teeth and supporting structures, unspecified K08.9 and Other chronic pain G89.29 [facility] [id number] [place] [address] 54810- 6056 Jun, [facility] [id number] [place] [address] 09096- 8930 Jun, [facility] [address] [place] [address] 76835- 5845 10 Nov, 2011 [facility] [id number] [place] [address] 97631- 0413 Oct, [facility] [address] [id number] [place] [address]- 4800 14 Aug, 2011 [facility] [place] [facility] [address] [id number] [place] [address]- 7151 13 Aug, 2011 [facility] [place] [facility] [address] [id number] [place] [address]- 0807 Aug, [facility] [place] [facility] [address] [id number] [place] [address]- 8278 08 Aug, 2011 [facility] [place] [facility] [address] [id number] [place] [address]- 4734 Aug, [facility] [place] [facility] [address] [id number] [place] [address]- 5254 July, [facility] [place] [facility] [address] [id number] [place] [address]- 0047 July, [facility] [place] [facility] [address] [id number] [place] [address]- 7817 July, [facility] [place] [facility] [address] [id number] [place] [address]- 1350 July, [facility] [place] [facility] [address] [id number] [place] [address]- 5412 Jun, [facility] [place] [facility] [address] [id number] [place] [address]- 8291 Jun, [facility] [place] [facility] [address] [id number] [place] [address]- 0943 Jun, [facility] [place] [facility] [address] [id number] [place] [address]- 9884 Jun, [facility] [place] [facility] [address] [id number] [place] [address]- 8900 Jun, [facility] [place] [facility] [address] [id number] [place] [address]- 9128 Jun, [facility] [place] [facility] [address] [facility] [id number] [place] [address]- 6233 Jun, [facility] [address] [facility] [id number] [place] [address] 3161 Feb, IMMUNIZATIONS No Known Immunizations SOCIAL HISTORY Never Assessed REASON FOR VISIT PALS-briviact PLAN OF CARE VITAL SIGNS MEDICATIONS Medication Instructions Dosage Frequency Start Date End Date Duration Status Briviact 50 mg Orally 2 times a day 1 tablet 12h 90 days Active RESULTS No Results PROCEDURES No Known procedures INSTRUCTIONS MEDICATIONS ADMINISTERED No Known Medications MEDICAL (GENERAL) HISTORY Type Description Date Medical History epilepsy Medical History seizures Surgical History 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
--- OUTSIDE RECORDS SUMMARY | 2018-01-13 19:49 | XMS REPORT ---
Author Author DAPHNEY SOLIS [facility] Address [address] [place] [address] Care Team Providers Care Morphologist Name Role Phone DAPHNEY SOLIS Unavailable PROBLEMS Type Condition ICD9-CM Code [id number] Code Onset Dates Condition Status SNOMED Code Problem Seizure disorder G40.909 Active 276344423 ALLERGIES Substance Reaction Event Type Date Status Mila hives Drug Allergy July, Active ENCOUNTERS Encounter Location Date Diagnosis [address] [address] Oct, Anterior dislocation of left shoulder, subsequent encounter S43.015D [place] [address] [address]- 6597 Sep, Seizure disorder G40.909 [facility] [address] [address]- 1322 Sep, Seizure disorder G40.909 [place] [address] 61280- 9857 Aug, Anterior dislocation of left shoulder, initial encounter S43.015A [facility] [address] [address] -[address] 16 Aug, 2017 Abrasions of multiple sites T07.XXXA [facility] [address] [address]- 9001 15 Aug, 2017 Seizure disorder G40.909 [facility] [address] [id number] 13 Aug, 2017 Dental caries K02.9 [facility] [address] [id number] 06 Aug, 2017 Dental examination Z01.20 [facility] [address] [address]- 7152 Aug, Closed dislocation of left shoulder, initial encounter S43.005A and Seizure disorder G40.909 [facility] [address] [address]- 0650 Aug, [facility] [id number] [place] [address] 14792- 9286 Aug, [facility] [id number] [place] [address] 50547- 4977 July, [facility] [id number] [place] [address] 63149- 0020 July, [facility] [address] [place] [address] 71674- 8610 July, Seizure disorder G40.909 [facility] [id number] [place] [address] 21060- 9344 July, Seizure disorder G40.909 [facility] [id number] [place] [address] 21086- 1096 July, Seizure disorder G40.909 [facility] [address] [place] [address] 02139- 5844 July, Dental examination Z01.20 [facility] [address] [address]- 9885 July, Viral upper respiratory tract infection J06.9 ; Disorder of teeth and supporting structures, unspecified K08.9 and Other chronic pain G89.29 [facility] [address] [place] [address] 16602- 9215 Jun, [facility] [id number] [place] [address] 62395- 3378 Jun, [facility] [address] [place] [address] 58775- 3282 Nov, [facility] [place] [facility] [address] [id number] [place] [address]- 4148 Oct, [facility] [place] [facility] [address] [id number] [place] [address]- 8715 14 Aug, 2011 [facility] [place] [facility] [address] [id number] [place] [address]- 7745 Aug, [facility] [place] [facility] [address] [id number] [place] [address]- 9026 Aug, [facility] [place] [facility] [address] [id number] [place] [address]- 1793 Aug, [facility] [place] [facility] [address] [id number] [place] [address]- 3185 Aug, [facility] [place] [facility] [address] [id number] [place] [address]- 5758 July, [facility] [place] [facility] [address] [id number] [place] [address]- 6181 July, [facility] [place] [facility] [address] [id number] [place] [address]- 7154 July, [facility] [place] [facility] [address] [id number] [place] [address]- 4169 July, [facility] [place] [facility] [address] [id number] [place] [address]- 0793 Jun, [facility] [place] [facility] [address] [id number] [place] [address]- 5727 Jun, [facility] [place] [facility] [address] [id number] [place] [address]- 0128 Jun, [facility] [place] [facility] [address] [id number] [place] [address]- 6377 Jun, [facility] [place] [facility] [address] [id number] [place] [address]- 1958 05 Jun, 2011 [facility] [place] [facility] [address] [id number] [place] [address]- 2666 Jun, [facility] [address] [facility] [id number] [place] [address]- 2546 Jun, [facility] [address] [facility] [id number] [place] [address]- 2546 Feb, IMMUNIZATIONS No Known Immunizations SOCIAL HISTORY Never Assessed REASON FOR VISIT Seizure, Sister reports the PT had a seizure this morning 6:43am, it was noted that it did not last long. -Michelet SOTO , PT needs a disability note, PT needs refills through [facility] PLAN OF CARE Activity Details Follow Up prn Reason: VITAL SIGNS Height 66 in 2017-08-03 Weight 204.3 lbs 2017-08-03 Temperature 98.2 degrees Fahrenheit 2017-08-03 Heart Rate 76 bpm 2017-08-03 Respiratory Rate 18 2017-08-03 BMI 32.97 kg/m2 2017-08-03 Blood pressure systolic 120 mmHg 2017-08-03 Blood pressure diastolic 78 mmHg 2017-08-03 MEDICATIONS Medication Instructions Dosage Frequency Start Date End Date Duration Status Depakote 500 mg Orally 2 times a day 1 12h July, Active Briviact 50 mg Orally 2 times a day 1 tablet 12h 07 days Active Lamotrigine 100 MG Orally 2 times a day 2.5 tablets 12h Active RESULTS No Results PROCEDURES No Known procedures INSTRUCTIONS MEDICATIONS ADMINISTERED No Known Medications MEDICAL (GENERAL) HISTORY Type Description Date Medical History epilepsy Medical History seizures Surgical History 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
--- OUTSIDE RECORDS SUMMARY | 2018-01-13 19:49 | XMS REPORT ---
Author Author DAPHNEY SOLIS [facility] Address [address] [place] [address] Care Team Providers Care Major Assembly Lineman Name Role Phone DAPHNEY SOLIS Unavailable PROBLEMS Type Condition ICD9-CM Code GSF68-HG Code Onset Dates Condition Status SNOMED Code Problem Seizure disorder G40.909 Active 375514905 ALLERGIES No Information ENCOUNTERS Encounter Location Date Diagnosis [address] [address] Oct, Anterior dislocation of left shoulder, subsequent encounter S43.015D [address] [address] Sep, Seizure disorder G40.909 [facility] [address] [address] Sep, Seizure disorder G40.[address] [address]- 6[address] Aug, Anterior dislocation of left shoulder, initial encounter S43.015A [facility] [address] [address] 16 Aug, 2017 Abrasions of multiple sites T07.XXXA [facility] [address] [id number] [place] [address] 22793- 8621 15 Aug, 2017 Seizure disorder G40.909 [facility] [address] [id number] 13 Aug, 2017 Dental caries K02.9 [facility] [address] [id number] 06 Aug, 2017 Dental examination Z01.20 [facility] [address] [place] [address] Aug, Closed dislocation of left shoulder, initial encounter S43.005A and Seizure disorder G40.909 [facility] [id number] [place] [address] 86614- 6712 Aug, [facility] [id number] [place] [address] 52644- 4416 Aug, [facility] [id number] [place] [address] 52118- 7441 July, [facility] [id number] [place] [address] 48647- 0238 July, [facility] [id number] [place] [address] 88081- 7960 July, Seizure disorder G40.909 [facility] [id number] [place] [address] 00841- 1894 July, Seizure disorder G40.909 [facility] [id number] [place] [address] 80787- 0704 July, Seizure disorder G40.909 [facility] [id number] [place] [address] 77873- 6087 July, Dental examination Z01.20 [facility] [id number] [place] [address] 64666- 2157 July, Viral upper respiratory tract infection J06.9 ; Disorder of teeth and supporting structures, unspecified K08.9 and Other chronic pain G89.29 [facility] [id number] [place] [address] 42996- 4117 Jun, [facility] [id number] [place] [address] 56823- 8934 Jun, [facility] [id number] [place] [address] 58905- 4489 10 Nov, 2011 [facility] [id number] [place] [address] 56317- 1487 Oct, [facility] [address] [id number] [place] [address]- 6895 14 Aug, 2011 [facility] [place] [facility] [address] [id number] [place] [address]- 5895 13 Aug, 2011 [facility] [place] [facility] [address] [id number] [place] [address]- 3117 Aug, [facility] [place] [facility] [address] [id number] [place] [address]- 9209 08 Aug, 2011 [facility] [place] [facility] [address] [id number] [place] [address]- 7770 Aug, [facility] [place] [facility] [address] [id number] [place] [address]- 5850 July, [facility] [place] [facility] [address] [id number] [place] [address]- 8593 July, [facility] [place] [facility] [address] [id number] [place] [address]- 9929 July, [facility] [place] [facility] [address] [id number] [place] [address]- 1056 July, [facility] [place] [facility] [address] [id number] [place] [address]- 1875 Jun, [facility] [place] [facility] [address] [id number] [place] [address]- 9024 Jun, [facility] [place] [facility] [address] [id number] [place] [address]- 5294 Jun, [facility] [place] [facility] [address] [id number] [place] [address]- 2517 Jun, [facility] [place] [facility] [address] [id number] [place] [address]- 5439 Jun, [facility] [place] [facility] [address] [id number] [place] [address]- 1547 Jun, [facility] [place] [facility] [address] [facility] [id number] [place] [address]- 4266 Jun, [facility] [address] [facility] [id number] [address] Feb, IMMUNIZATIONS No Known Immunizations SOCIAL HISTORY [...]
--- OUTSIDE RECORDS SUMMARY | 2018-01-13 19:49 | XMS REPORT ---
Author Author DAPHNEY SOLIS [facility] Address [address] [place] [address] Care Team Providers Care Imposer Name Role Phone DPAHNEY SOLIS Unavailable PROBLEMS Type Condition ICD9-CM Code UWU21-RF Code Onset Dates Condition Status SNOMED Code Problem Seizure disorder G40.909 Active 803850512 ALLERGIES No Information ENCOUNTERS Encounter Location Date Diagnosis [address] [address] Oct, Anterior dislocation of left shoulder, subsequent encounter S43.015D [address] [address]- [address] Sep, Seizure disorder G40.909 [facility] [address] [address]- 77[address] Sep, Seizure disorder G40.[address] [address]- 0[address] Aug, Anterior dislocation of left shoulder, initial encounter S43.015A [facility] [address] [address] 16 Aug, 2017 Abrasions of multiple sites T07.XXXA [facility] [id number] [place] [address] 34385- 8753 15 Aug, 2017 Seizure disorder G40.909 [facility] [address] [id number] 13 Aug, 2017 Dental caries K02.9 [facility] [address] [id number] 06 Aug, 2017 Dental examination Z01.20 [facility] [address] [place] [address]- 3311 Aug, Closed dislocation of left shoulder, initial encounter S43.005A and Seizure disorder G40.909 [facility] [id number] [place] [address] 30662- 5909 Aug, [facility] [id number] [place] [address] 65705- 5235 Aug, [facility] [id number] [place] [address] 74610- 2928 July, [facility] [id number] [place] [address] 31589- 9195 July, [facility] [id number] [place] [address] 92883- 7165 July, Seizure disorder G40.909 [facility] [id number] [place] [address] 35586- 5206 July, Seizure disorder G40.909 [facility] [id number] [place] [address] 90452- 3764 July, Seizure disorder G40.909 [facility] [id number] [place] [address] 12872- 1117 July, Dental examination Z01.20 [facility] [id number] [place] [address] 58784- 4186 July, Viral upper respiratory tract infection J06.9 ; Disorder of teeth and supporting structures, unspecified K08.9 and Other chronic pain G89.29 [facility] [id number] [place] [address] 28081- 5455 Jun, [facility] [id number] [place] [address] 64418- 9240 Jun, [facility] [address] [place] [address] 65843- 0955 10 Nov, 2011 [facility] [id number] [place] [address] 19208- 5475 Oct, [facility] [address] [id number] [place] [address]- 6558 14 Aug, 2011 [facility] [place] [facility] [address] [id number] [place] [address]- 9471 13 Aug, 2011 [facility] [place] [facility] [address] [id number] [place] [address]- 9488 Aug, [facility] [place] [facility] [address] [id number] [place] [address]- 2220 08 Aug, 2011 [facility] [place] [facility] [address] [id number] [place] [address]- 2519 Aug, [facility] [place] [facility] [address] [id number] [place] [address]- 3218 July, [facility] [place] [facility] [address] [id number] [place] [address]- 9965 July, [facility] [place] [facility] [address] [id number] [place] [address]- 2163 July, [facility] [place] [facility] [address] [id number] [place] [address]- 1555 July, [facility] [place] [facility] [address] [id number] [place] [address]- 8101 Jun, [facility] [place] [facility] [address] [id number] [place] [address]- 0303 Jun, [facility] [place] [facility] [address] [id number] [place] [address]- 0115 Jun, [facility] [place] [facility] [address] [id number] [place] [address]- 9420 Jun, [facility] [place] [facility] [address] [id number] [place] [address]- 7267 Jun, [facility] [place] [facility] [address] [id number] [place] [address]- 2326 Jun, [facility] [place] [facility] [address] [facility] [id number] [place] [address]- 1857 Jun, [facility] [address] [facility] [id number], [place] [address]- 5533 Feb, IMMUNIZATIONS No Known Immunizations SOCIAL HISTORY Never Assessed REASON FOR VISIT Siezure PLAN OF CARE VITAL SIGNS MEDICATIONS Unknown Medications RESULTS No Results PROCEDURES No Known procedures INSTRUCTIONS MEDICATIONS ADMINISTERED No Known Medications MEDICAL (GENERAL) HISTORY Type Description Date Medical History epilepsy Medical History seizures Surgical History 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
--- OUTSIDE RECORDS SUMMARY | 2018-01-13 19:49 | XMS REPORT ---
Author Author DAPHNEY SOLIS [facility] Address [address] [place] [address] Care Team Providers Care Brand Ambassador Name Role Phone DAPHNEY SOLIS Unavailable PROBLEMS Type Condition ICD9-CM Code LZS98-CR Code Onset Dates Condition Status SNOMED Code Problem Seizure disorder G40.909 Active 654749611 ALLERGIES No Information ENCOUNTERS Encounter Location Date Diagnosis [address] [address] Oct, Anterior dislocation of left shoulder, subsequent encounter S43.015D [address] [address]- 9259 Sep, Seizure disorder G40.909 [facility] [address] [address]- 2080 Sep, Seizure disorder G40.[address] [address]- 1542 Aug, Anterior dislocation of left shoulder, initial encounter S43.015A [facility] [address] [address] 16 Aug, 2017 Abrasions of multiple sites T07.XXXA [facility] [id number] [place] [address] 42136- 8299 15 Aug, 2017 Seizure disorder G40.909 [facility] [address] [id number] 13 Aug, 2017 Dental caries K02.9 [facility] [address] [id number] 06 Aug, 2017 Dental examination Z01.20 [facility] [address] [place] [address]- 7747 Aug, Closed dislocation of left shoulder, initial encounter S43.005A and Seizure disorder G40.909 [facility] [id number] [place] [address] 58732- 0137 Aug, [facility] [id number] [place] [address] 68159- 7436 Aug, [facility] [id number] [place] [address] 22698- 0773 July, [facility] [id number] [place] [address] 46493- 0805 July, [facility] [id number] [place] [address] 36041- 8250 July, Seizure disorder G40.909 [facility] [id number] [place] [address] 24987- 0635 July, Seizure disorder G40.909 [facility] [id number] [place] [address] 79409- 8609 July, Seizure disorder G40.909 [facility] [id number] [place] [address] 69968- 4517 July, Dental examination Z01.20 [facility] [id number] [place] [address] 75855- 6986 July, Viral upper respiratory tract infection J06.9 ; Disorder of teeth and supporting structures, unspecified K08.9 and Other chronic pain G89.29 [facility] [id number] [place] [address] 58516- 8401 Jun, [facility] [id number] [place] [address] 74837- 8543 Jun, [facility] [address] [place] [address] 15089- 3735 10 Nov, 2011 [facility] [id number] [place] [address] 04516- 1530 Oct, [facility] [address] [id number] [place] [address]- 8840 14 Aug, 2011 [facility] [place] [facility] [address] [place] [address] [id number] [place] [address]- 9143 13 Aug, 2011 [facility] [place] [facility] [address] [place] [address] [id number] [place] [address]- 1940 Aug, [facility] [place] [facility] [address] [place] [address] [id number] [place] [address]- 3713 08 Aug, 2011 [facility] [place] [facility] [address] [place] [address] [id number] [place] [address]- 0015 Aug, [facility] [place] [facility] [address] [place] [address] [id number] [place] [address]- 2874 July, [facility] [place] [facility] [address] [place] [address] [id number] [place] [address]- 9025 July, [facility] [place] [facility] [address] [place] [address] [id number] [place] [address]- 7235 July, [facility] [place] [facility] [address] [place] [address] [id number] [place] [address]- 4588 July, [facility] [place] [facility] [address] [place] [address] [id number] [place] [address]- 6524 Jun, [facility] [place] [facility] [address] [place] [address] [id number] [place] [address]- 6634 Jun, [facility] [place] [facility] [address] [place] [address] [id number] [place] [address]- 2121 Jun, [facility] [place] [facility] [address] [place] [address] [id number] [place] [address]- 4233 Jun, [facility] [place] [facility] [address] [place] [address] [id number] [place] [address]- 3955 Jun, [facility] [place] [facility] [address] [place] [address] [id number] [place] [address]- 1104 Jun, [facility] [place] [facility] [address] [facility] [id number] [place] [address]- 0547 Jun, [facility] [address] [facility] [id number] [place] [address]- 1452 Feb, IMMUNIZATIONS No Known Immunizations SOCIAL HISTORY Never Assessed REASON FOR VISIT Meds too expensive PLAN OF CARE VITAL SIGNS MEDICATIONS Unknown Medications RESULTS No Results PROCEDURES No Known procedures INSTRUCTIONS MEDICATIONS ADMINISTERED No Known Medications MEDICAL (GENERAL) HISTORY Type Description Date Medical History epilepsy Medical History seizures Surgical History 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
--- OUTSIDE RECORDS SUMMARY | 2018-01-13 19:49 | XMS REPORT ---
Author Author ELDER RED [facility] Address Unknown Care Team Providers Care Funeral Home Attendant Name Role Phone ELDER RED Unavailable PROBLEMS Type Condition ICD9-CM Code [id number] Code Onset Dates Condition Status SNOMED Code Problem Seizure disorder G40.909 Active 290206086 ALLERGIES Substance Reaction Event Type Date Status Mila hives Drug Allergy Aug, Active ENCOUNTERS Encounter Location Date Diagnosis [place] [address] [address] Oct, Anterior dislocation of left shoulder, subsequent encounter S43.015D [place] [address] [address]- 8378 Sep, Seizure disorder G40.909 [facility] [address] [address]- 5802 Sep, Seizure disorder G40.909 [place] [address] [address]- 5217 Aug, Anterior dislocation of left shoulder, initial encounter S43.015A [facility] [address] [address] -[address]271 16 Aug, 2017 Abrasions of multiple sites T07.XXXA [facility] [id number] [place] [address] 08826- 7307 15 Aug, 2017 Seizure disorder G40.909 [facility] [id number] [place] [address] [id number] Aug, Dental caries K02.9 [facility] [id number] [place] [address] [id number] 06 Aug, [address] [facility] [address] [id number] [address]- [address] Aug, Closed dislocation of left shoulder, initial encounter S43.005A and Seizure disorder G40.909 [facility] [id number] [place] [address] 81777- 2536 Aug, [facility] [id number] [place] [address] 40557- 2662 Aug, [facility] [id number] [place] [address] 46119- 5790 July, [facility] [id number] [place] [address] 84362- 4613 July, [facility] [id number] [place] [address] 48095- 0593 July, Seizure disorder G40.909 [facility] [id number] [place] [address] 45357- 2875 July, Seizure disorder G40.909 [facility] [id number] [place] [address] 00309- 6668 July, Seizure disorder G40.909 [facility] [id number] [place] [address] 73511- 5816 July, Dental examination Z01.20 [facility] [address] [place] [address] 34538- 4180 July, Viral upper respiratory tract infection J06.9 ; Disorder of teeth and supporting structures, unspecified K08.9 and Other chronic pain G89.29 [facility] [id number] [place] [address] 53659- 0699 Jun, [facility] [id number] [place] [address] 89607- 5582 Jun, [facility] [address] [place] [address] 13524- 8142 Nov, [facility] [id number] [place] [address], [place] [address]- 4367 10 Oct, 2011 [facility] [place] [facility] [address] [id number] [place] [address]- 2616 14 Aug, 2011 [facility] [place] [facility] [address] [id number] [place] [address]- 9913 13 Aug, 2011 [facility] [place] [facility] [address] [id number] [place] [address]- 0652 Aug, [facility] [place] [facility] [address] [id number] [place] [address]- 7908 08 Aug, 2011 [facility] [place] [facility] [address] [id number] [place] [address]- 3273 Aug, [facility] [place] [facility] [address] [id number] [place] [address]- 6721 July, [facility] [place] [facility] [address] [id number] [place] [address]- 2247 July, [facility] [place] [facility] [address] [id number] [place] [address]- 6806 July, [facility] [place] [facility] [address] [id number] [place] [address]- 4265 July, [facility] [place] [facility] [address] [id number] [place] [address]- 0135 Jun, [facility] [place] [facility] [address] [id number] [place] [address]- 5638 Jun, [facility] [place] [facility] [address] [id number] [place] [address]- 0864 Jun, [facility] [place] [facility] [address] [id number] [place] [address]- 6321 Jun, [facility] [place] [facility] [address] [id number] [place] [address]- 4111 Jun, [facility] [place] [facility] [address] [id number] [place] [address]- 9615 Jun, [facility] [place] [facility] [address] [facility] [id number] [place] [address]- 8687 Jun, [facility] [address] [facility] [id number] [address]- 2178 Feb, IMMUNIZATIONS No Known Immunizations SOCIAL HISTORY Never Assessed REASON FOR VISIT YFN #9 Root Tip PLAN OF CARE Activity Details Follow Up prn Reason:TE #7 & 9- 1 hour VITAL SIGNS Blood pressure systolic 126 mmHg 2017-08-09 Blood pressure diastolic 80 mmHg 2017-08-09 MEDICATIONS Medication Instructions Dosage Frequency Start Date End Date Duration Status Briviact 50 mg Orally 2 times a day 1 tablet 12h 07 days Not-Taking Lamotrigine 100 MG Orally 2 times a day 2.5 tablets 12h Active Depakote 500 mg Orally 2 times a day 1 12h July, Active Hydrocodone-Acetaminophen 5-325 MG Orally 3 times a day 1 tablet as needed 8h 04 Aug, 2017 Active Amoxicillin 500 mg Orally every 8 hrs 1 capsule 8h 07 days Active RESULTS No Results PROCEDURES Procedure Date Ordered Result Body Site LTD ORAL EVALUATION - PROBLEM FOCUS August 09, 2017 INTRAORL-PERIAPICAL 1 FILM [id number] August 09, 2017 INSTRUCTIONS MEDICATIONS ADMINISTERED No Known Medications MEDICAL (GENERAL) HISTORY Type Description Date Medical History epilepsy Medical History seizures Surgical History 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
--- OUTSIDE RECORDS SUMMARY | 2018-01-13 19:49 | XMS REPORT ---
Author Author DAPHNEY SOLIS [facility] Address [address] [place] [address] Care Team Providers Care Yeast Cake Cutter Name Role Phone DAPHNEY SOLIS Unavailable PROBLEMS Type Condition ICD9-CM Code QBZ35-TD Code Onset Dates Condition Status SNOMED Code Problem Seizure disorder G40.909 Active 840623376 ALLERGIES No Information ENCOUNTERS Encounter Location Date Diagnosis [address] [address] Oct, Anterior dislocation of left shoulder, subsequent encounter S43.015D [address] [address] Sep, Seizure disorder G40.909 [facility] [address] [address] Sep, Seizure disorder G40.[address] [address] Aug, Anterior dislocation of left shoulder, initial encounter S43.015A [facility] [address] [address] 16 Aug, 2017 Abrasions of multiple sites T07.XXXA [facility] [id number] [place] [address]48- 7774 15 Aug, 2017 Seizure disorder G40.909 [facility] [address] [id number] 13 Aug, 2017 Dental caries K02.9 [facility] [address] [id number] 06 Aug, 2017 Dental examination Z01.20 [facility] [address] [place] [address] Aug, Closed dislocation of left shoulder, initial encounter S43.005A and Seizure disorder G40.909 [facility] [id number] [place] [address] 01290- 4661 Aug, [facility] [id number] [place] [address] 92116- 7037 Aug, [facility] [id number] [place] [address] 84844- 3935 July, [facility] [id number] [place] [address] 48247- 8458 July, [facility] [id number] [place] [address] 76647- 8890 July, Seizure disorder G40.909 [facility] [id number] [place] [address] 01023- 7467 July, Seizure disorder G40.909 [facility] [id number] [place] [address] 78660- 8552 July, Seizure disorder G40.909 [facility] [id number] [place] [address] 05727- 1603 July, Dental examination Z01.20 [facility] [id number] [place] [address]84- 5359 July, Viral upper respiratory tract infection J06.9 ; Disorder of teeth and supporting structures, unspecified K08.9 and Other chronic pain G89.29 [facility] [id number] [place] [address] 64211- 4884 Jun, [facility] [id number] [place] [address] 62044- 3249 Jun, [facility] [id number] [place] [address] 42669- 7018 10 Nov, 2011 [facility] [id number] [place] [address] 60293- 5891 Oct, [facility] [address] [id number] [place] [address] 14 Aug, 2011 [facility] [place] [facility] [address] [id number] [place] [address]- 6101 13 Aug, 2011 [facility] [place] [facility] [address] [id number] [place] [address]- 3735 Aug, [facility] [place] [facility] [address] [id number] [place] [address]- 4724 08 Aug, 2011 [facility] [place] [facility] [address] [id number] [place] [address]- 2659 Aug, [facility] [place] [facility] [address] [id number] [place] [address]- 5450 July, [facility] [place] [facility] [address] [id number] [place] [address]- 2412 July, [facility] [place] [facility] [address] [id number] [place] [address]- 2946 July, [facility] [place] [facility] [address] [id number] [place] [address]- 9326 July, [facility] [place] [facility] [address] [id number] [place] [address]- 7691 Jun, [facility] [place] [facility] [address] [id number] [place] [address]- 0186 Jun, [facility] [place] [facility] [address] [id number] [place] [address]- 6784 Jun, [facility] [place] [facility] [address] [id number] [place] [address]- 0383 Jun, [facility] [place] [facility] [address] [id number] [place] [address]- 2320 Jun, [facility] [place] [facility] [address] [id number] [place] [address]- 4295 Jun, [facility] [place] [facility] [address] [facility] [id number] [place] [address]- 1420 Jun, [facility] [address] [facility] [id number] [place] [address]- 9111 Feb, IMMUNIZATIONS No Known Immunizations SOCIAL HISTORY Never Assessed REASON FOR VISIT ER Visit 08/03/17 PLAN OF CARE VITAL SIGNS MEDICATIONS Unknown Medications RESULTS No Results PROCEDURES No Known procedures INSTRUCTIONS MEDICATIONS ADMINISTERED No Known Medications MEDICAL (GENERAL) HISTORY Type Description Date Medical History epilepsy Medical History seizures Surgical History 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
--- OUTSIDE RECORDS SUMMARY | 2018-01-13 19:50 | XMS REPORT ---
Author Author TAYLOR SUAREZ [facility] Address [address] [place] [address] Care Team Providers Care Pole Cutter Name Role Phone TAYLOR SUAREZ Unavailable PROBLEMS Type Condition ICD9-CM Code TAI29-UE Code Onset Dates Condition Status SNOMED Code Problem Seizure disorder G40.909 Active [id number] ALLERGIES Substance Reaction Event Type Date Status Mila hives Drug Allergy July, Active ENCOUNTERS Encounter Location Date Diagnosis [facility] [address] [address] Oct, Anterior dislocation of left shoulder, subsequent encounter S43.015D [facility] [address] [address]- [address] Sep, Seizure disorder G40.909 [facility] [address] 87[address]- 9200 Sep, Seizure disorder G40.909 [facility] [address] 85196- 6474 Aug, Anterior dislocation of left shoulder, initial encounter S43.015A [facility] [address] [address] 16 Aug, 2017 Abrasions of multiple sites T07.XXXA [facility] [address] [address]- [address] 15 Aug, 2017 Seizure disorder G40.909 [facility] [id number] [place] [id number] Aug, Dental caries K02.9 [facility] [address] [id number] Aug, Dental examination Z01.20 [facility] [address] [place] [address] 96701- 1682 Aug, Closed dislocation of left shoulder, initial encounter S43.005A and Seizure disorder G40.909 [facility] [address] [place] [address] 16749- 8938 Aug, [facility] [id number] [place] [address] 48077- 3625 Aug, [facility] [id number] [place] [address] 26831- 7736 July, [facility] [id number] [place] [address] 67487- 7845 July, [facility] [id number] [place] [address] 51933- 6869 July, Seizure disorder G40.909 [facility] [id number] [place] [address] 11795- 4193 July, Seizure disorder G40.909 [facility] [id number] [place] [address] 02407- 2117 July, Seizure disorder G40.909 [facility] [address] [place] [address] 02789- 8627 July, Dental examination Z01.20 [facility] [id number] [place] [address] 38527- 4332 July, Viral upper respiratory tract infection J06.9 ; Disorder of teeth and supporting structures, unspecified K08.9 and Other chronic pain G89.29 [facility] [id number] [place] [address] 33999- 4394 14 Jun, 2014 [facility] [id number] [place] [address] 36266- 7075 Jun, [facility] [id number] [place] [address] 66695- 0294 Nov, [facility] [place] [facility] [address] [id number] [place] [address]- 0807 Oct, [facility] [place] [facility] [address] [id number] [place] [address]- 3888 14 Aug, 2011 [facility] [place] [facility] [address] [id number] [place] [address]- 1360 Aug, [facility] [place] [facility] [address] [id number] [place] [address]- 8814 Aug, [facility] [place] [facility] [address] [id number] [place] [address]- 3740 Aug, [facility] [place] [facility] [address] [id number] [place] [address]- 2319 Aug, [facility] [place] [facility] [address] [id number] [place] [address]- 7311 July, [facility] [place] [facility] [address] [id number] [place] [address]- 7472 July, [facility] [place] [facility] [address] [id number] [place] [address]- 7123 July, [facility] [place] [facility] [address] [id number] [place] [address]- 1857 July, [facility] [place] [facility] [address] [id number] [place] [address]- 4800 Jun, [facility] [place] [facility] [address] [id number], [place] [address]- 3979 Jun, [facility] [place] [facility] [address] [id number] [place] [address]- 3318 Jun, [facility] [place] [facility] [address] [id number] [place] [address]- 7297 Jun, [facility] [place] [facility] [address] [id number] [place] [address]- 2549 Jun, [facility] [place] [facility] [address] [id number], [place] [address]- 5816 Jun, [facility] [address] [facility] [id number] [place] [address]- 2028 Jun, [facility] [address] [facility] [id number], [place] [address]- 1706 Feb, IMMUNIZATIONS No Known Immunizations SOCIAL HISTORY Never Assessed REASON FOR VISIT Runny nose, cough, c/o allergies. [facility] [place] PLAN OF CARE Activity Details Follow Up as needed Reason: VITAL SIGNS Height 66 in 2017-07-13 Weight 203 lbs 2017-07-13 Temperature 98.3 degrees Fahrenheit 2017-07-13 Heart Rate 74 bpm 2017-07-13 Respiratory Rate 18 2017-07-13 BMI 32.76 kg/m2 2017-07-13 Blood pressure systolic 126 mmHg 2017-07-13 Blood pressure diastolic 80 mmHg 2017-07-13 MEDICATIONS Medication Instructions Dosage Frequency Start Date End Date Duration Status Klonopin 0.5 mg 1 tablet by Oral route 2 times per dayprn anxiety Nov, Not-Taking Lamotrigine 100 MG Orally 2 times a day 2.5 tablets 12h Active Briviact 50 MG Orally 2 times a day 1 tablet 12h Active medroxyprogesterone 10 mg take 1 tablet (10 mg) by oral route once daily for 10 days Jun, Not-Taking RESULTS No Results PROCEDURES No Known procedures INSTRUCTIONS MEDICATIONS ADMINISTERED No Known Medications MEDICAL (GENERAL) HISTORY Type Description Date Medical History epilepsy Medical History seizures Surgical History 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
--- OUTSIDE RECORDS SUMMARY | 2018-01-13 19:50 | XMS REPORT ---
Author Author JULEE MANJARREZ [facility] Address [address] [place] [address] Care Team Providers Care Floorworker Name Role Phone JULEE MANJARREZ Unavailable PROBLEMS Type Condition ICD9-CM Code XCH36-LP Code Onset Dates Condition Status SNOMED Code Problem Seizure disorder G40.909 Active [id number] ALLERGIES No Information ENCOUNTERS Encounter Location Date Diagnosis [facility] [address] [address] Oct, Anterior dislocation of left shoulder, subsequent encounter S43.015D [place] [address] [address]- [address]11 Sep, Seizure disorder G40.909 [facility] [address] [address]- 2784 Sep, Seizure disorder G40.909 [place] [address] [address]57- 3573 Aug, Anterior dislocation of left shoulder, initial encounter S43.015A [facility] [address] [address] Aug, Abrasions of multiple sites T07.XXXA [facility] [id number] [place] [address] 60898- 1614 15 Aug, [address] [facility] [address] [id number] Aug, Dental caries K02.9 [facility] [address] [id number] 06 Aug, 2017 Dental examination Z01.20 [facility] [address] [address] Aug, Closed dislocation of left shoulder, initial encounter S43.005A and Seizure disorder G40.909 [facility] [id number] [place] [address] 70387- 9274 Aug, [facility] [id number] [place] [address] 69405- 1149 Aug, [facility] [id number] [place] [address] 65808- 5313 July, [facility] [id number] [place] [address] 01967- 2060 July, [facility] [id number] [place] [address] 72757- 7253 July, Seizure disorder G40.909 [facility] [id number] [place] [address] 25750- 0343 July, Seizure disorder G40.909 [facility] [id number] [place] [address] 36616- 7709 July, Seizure disorder G40.909 [facility] [id number] [place] [address] 76531- 4991 July, Dental examination Z01.20 [facility] [address] [place] [address] 70173- 5340 July, Viral upper respiratory tract infection J06.9 ; Disorder of teeth and supporting structures, unspecified K08.9 and Other chronic pain G89.29 [facility] [address], [place] [address]- 8761 Jun, [facility] [id number] [place] [address] 49649- 1393 Jun, [facility] [address], [place] [address]- 4679 Nov, [facility] [id number] [place] [address]- 6101 10 Oct, 2011 [facility] [address] [id number] [place] [address]- 0081 14 Aug, 2011 [facility] [address] [id number] [place] [address]- 2231 Aug, [facility] [address] [id number] [place] [address]- 7635 Aug, [facility] [address] [id number] [place] [address]- 9923 Aug, [facility] [address] [id number] [place] [address]- 9686 Aug, [facility] [address] [id number] [place] [address]- 5424 July, [facility] [address] [id number] [place] [address]- 4154 July, [facility] [address] [id number] [place] [address]- 8949 July, [facility] [address] [id number] [place] [address]- 1579 July, [facility] [address] [id number] [place] [address]- 0861 Jun, [facility] [address] [id number] [place] [address]- 8394 Jun, [facility] [address] [id number] [place] [address]- 3229 Jun, [facility] [place] [facility] [address] [id number] [place] [address]- 8837 Jun, [facility] [place] [facility] [address] [id number] [place] [address]- 5659 Jun, [facility] [address] [id number] [place] [address]- 9799 Jun, [facility] [address] [facility] [id number] [place] [address]- 3986 Jun, [facility] [address] [facility] [id number] [place] [address]- 2546 Feb, IMMUNIZATIONS No Known Immunizations SOCIAL HISTORY Never Assessed REASON FOR VISIT ref. pain from fam. 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
[2018-01-13] MEDS ORDERED: ONDANSETRON 4 MG/2 ML (SDV) Z0FRAN ONE ×2 (19:53→19:57)
[2018-01-13] MEDS ORDERED: NS IV 1000 ML 1,000 ML ONE (19:57)
[2018-01-13] MEDS ORDERED: IOHEXOL 350 MG/ML 100 ML (OMNIPAQUE 350) VIAL IV ONE (20:00)
[2018-01-13] MEDS ORDERED: NS IV 1000 ML 1,000 ML IV SCH ×2 (20:00→21:30)
[2018-01-13] MEDS ORDERED: CATHETER FLUSH 10 ML SYR IV PRN (20:00)
[2018-01-13] MEDS ORDERED: ONDANSETRON 4 MG/2 ML (SDV) Z0FRAN IVP ONE (20:00)
[2018-01-13] MEDS ORDERED: RECEIVED CONTRAST (Hold Metformin) IV SCH (20:00)
[2018-01-13] MEDS ORDERED: NS 250 ML (IVPB) BAG IV ONE (20:00)
--- NOTE | 2018-01-13 20:02 | ED GI ---
General Stated Complaint: VOMITING Source of Information: Patient Exam Limitations: No Limitations History of Present Illness Date Seen by Provider: Jan 13, 2018 Time Seen by Provider: 20:00 Initial Comments To ER per private vehicle with reports of nausea and vomiting. This began last week and seemed to improve, then recurred today and is much worse today. She's vomited 3 times today he nearly passes out when she stands up. She denies any fevers chills or abdominal pain. She did have diarrhea last week but none today. Caregiver who is with her believes this is secondary to the Depakote which she takes for epilepsy. She's been on this for about 6 months Timing/Duration: 1 Week, Getting Worse, Intermittent Severity/Quality: Moderate Radiation: No Radiation Activities at Onset: None Allergies and Home Medications Allergies Coded Allergies: No Known Drug Allergies (Unverified , 08/03/17) Home Medications Hydrocodone/Acetaminophen 1 Each Tablet, 1 EACH PO Q4H PRN for PAIN-MODERATE TO SEVERE Prescribed by: LUCY PAIZ on 08/03/17 5892 Patient Home Medication List Home Medication List Reviewed: Yes Review of Systems Review of Systems Constitutional: see HPI EENTM: No Symptoms Reported Respiratory: No Symptoms Reported Cardiovascular: No Symptoms Reported Gastrointestinal: See HPI; Denies Abdominal Pain; Diarrhea, Nausea, Vomiting Genitourinary: No Symptoms Reported Musculoskeletal: no symptoms reported Skin: no symptoms reported Psychiatric/Neurological: No Symptoms Reported Endocrine: No Symptoms Reported Past Hldvaun-Qijnyk-Zkdvgm Hx Patient Social History 2nd Hand Smoke Exposure: No Recent Foreign Travel: No Contact w/Someone Who Travel: No Recent Hopitalizations: No Seasonal Allergies Seasonal Allergies: Yes Past Medical History Surgeries: Yes (UTERINE PROCEDURE) Respiratory: No Cardiac: No Neurological: Yes Seizure Disorder Genitourinary: No Gastrointestinal: No Musculoskeletal: No Endocrine: No HEENT: No Cancer: No Psychosocial: No Blood Disorders: No Family Medical History No Pertinent Family Hx Physical Exam Vital Signs Vital Signs - First Documented 01/13/18 19:50 Temp 97.2 Pulse 99 Resp 19 B/P (MAP) 114/87 (96) Capillary Refill : Height/Weight/BMI Height: 5'6.00" Weight: 204lbs. 0oz. 92.132842gf; BMI Method:Stated General Appearance: WD/WN, no apparent distress HEENT: PERRL/EOMI, normal ENT inspection Respiratory: no respiratory distress, no accessory muscle use Cardiovascular: regular rate, rhythm, no murmur Gastrointestinal: normal bowel sounds, non tender, soft Extremities: normal range of motion, non-tender Neurologic/Psychiatric: alert, normal mood/affect Skin: normal color, warm/dry Procedures/Interventions Patient Education: Explained Benefits, Explained Risks, Pt. Ack. Understanding Breath Sounds per Auscultation: Clear Heart Sounds per Auscultation: Regular Airway Exam: Mouth opens >2 fingers, Neck Full Range of Motion, Visulation of Uvula Sedation Adminstration Time: 2130 Re-examination Time: 2219 Progress/Results/Core Measures Results/Orders Lab Results Laboratory Tests Test 01/13/18 19:57 01/13/18 21:58 Range/Units White Blood Count 9.2 4.3-11.0 10^3/uL Red Blood Count 4.92 4.35-5.85 10^6/uL Hemoglobin 16.0 11.5-16.0 G/DL Hematocrit 46 35-52 % Mean Corpuscular Volume 94 80-99 FL Mean Corpuscular Hemoglobin 33 25-34 PG Mean Corpuscular Hemoglobin Concent 35 32-36 G/DL Red Cell Distribution Width 12.7 10.0-14.5 % Platelet Count 370 130-400 10^3/uL Mean Platelet Volume 9.1 7.4-10.4 FL Neutrophils (%) (Auto) 61 42-75 % Lymphocytes (%) (Auto) 28 12-44 % Monocytes (%) (Auto) 9 0-12 % Eosinophils (%) (Auto) 1 0-10 % Basophils (%) (Auto) 0 0-10 % Neutrophils # (Auto) 5.7 1.8-7.8 X 10^3 Lymphocytes # (Auto) 2.6 1.0-4.0 X 10^3 Monocytes # (Auto) 0.8 0.0-1.0 X 10^3 Eosinophils # (Auto) 0.1 0.0-0.3 10^3/uL Basophils # (Auto) 0.0 0.0-0.1 10^3/uL Sodium Level 140 135-145 MMOL/L Potassium Level 3.8 3.6-5.0 MMOL/L Chloride Level 103 98-107 MMOL/L Carbon Dioxide Level 22 21-32 MMOL/L Anion Gap 15 H 5-14 MMOL/L Blood Urea Nitrogen 12 7-18 MG/DL Creatinine 0.81 0.60-1.30 MG/DL Estimat Glomerular Filtration Rate > 60 BUN/Creatinine Ratio 15 Glucose Level 104 70-105 MG/DL Calcium Level 9.7 8.5-10.1 MG/DL Corrected Calcium 8.5-10.1 MG/DL Total Bilirubin 0.6 0.1-1.0 MG/DL Aspartate Amino Transf (AST/SGOT) 13 5-34 U/L Alanine Aminotransferase (ALT/SGPT) 11 0-55 U/L Alkaline Phosphatase 61 40-136 U/L Total Protein 8.2 6.4-8.2 GM/DL Albumin 4.7 H 3.2-4.5 GM/DL Lipase 15 8-78 U/L Serum Test, Qualitative NEGATIVE NEGATIVE Valproic Acid (Depakene) Level 33.0 L 50.0-100.0 UG/ML My Orders Orders - LUCY PAIZ APRN Ondansetron Injection (Zofran Injectio (01/13/18 19:53) Ondansetron Injection (Zofran Injectio (01/13/18 19:57) Cbc With Automated Diff (01/13/18 19:57) Comprehensive Metabolic Panel (01/13/18 19:57) Ua Culture If Indicated (01/13/18:57) Lipase (01/13/18 19:57) Valproic Acid (01/13/18 19:57) Iv Heplock-Insert (Order) (01/13/18 19:57) Ns Iv 1000 Ml (Sodium Chloride 0.9%) (01/13/18 20:00) Ondansetron Injection (Zofran Injectio (01/13/18 20:00) Ct Head Wo (01/13/18 19:57) Ct Abdomen/Pelvis W (01/13/18 19:57) Hcg,Qualitative Serum (01/13/18:57) Ns Iv 1000 Ml (Sodium Chloride 0.9%) (01/13/18 19:57) Iohexol Injection (Omnipaque 350 Mg/Ml 1 (01/13/18 20:00) Contrast Received (Contrast Received) (01/13/18 20:00) Sodium Chloride Flush (Catheter Flush Sy (01/13/18 20:00) Ns (Ivpb) (Sodium Chloride 0.9%) (01/13/18 20:00) Promethazine Injection (Phenergan Injec (01/13/18 21:30) Ns Iv 1000 Ml (Sodium Chloride 0.9%) (01/13/18 21:30) Medications Given in ED Current Medications Medications Dose Ordered Sig/Odilon Route Start Time Stop Time Status Last Admin Dose Admin Iohexol 100 ml ONCE ONCE IV 01/13/18 20:00 01/13/18 20:02 DC 01/13/18 21:13 100 ML Ondansetron HCl 8 mg ONCE ONCE IVP 01/13/18 20:00 01/13/18 20:01 DC 01/13/18 20:00 8 MG Promethazine HCl 12.5 mg ONCE ONCE IVP 01/13/18 21:30 01/13/18 21:31 DC 01/13/18 21:28 12.5 MG Sodium Chloride 10 ml NEEDED PRN IV 01/13/18 20:00 01/13/18 21:13 10 ML Sodium Chloride 250 ml ONCE ONCE IV 01/13/18 20:00 01/13/18 20:02 DC 01/13/18 21:13 80 ML Vital Signs/I&O 01/13/18 19:50 Temp 97.2 Pulse 99 Resp 19 B/P (MAP) 114/87 (96) Diagnostic Imaging Diagonstic Imaging: CT Comments NAME: MAURISIO BARNES [facility] REC#: [id number] PT STATUS: REG ER : 1975 PHYSICIAN: LUCY PAIZ APRN ADMIT DATE: 01/13/18/ER Signed Date of Exam:01/13/18 CT ABDOMEN/PELVIS W INDICATION: Nausea and vomiting for several days. COMPARISON STUDY: None. FINDINGS: Multiple gallstones are present. Gallbladder is moderately distended, measuring 9.8 cm. No ductal dilatation or inflammatory changes are evident. The liver, spleen, pancreas, adrenal glands and kidneys are normal. The endometrium appears thickened. A 2.3 cm right ovarian cyst is present. There are some questionable nabothian cysts. No ascites, free air or loculated fluid collections are present. There is no abnormal adenopathy. The bowel loops appear normal. Bilateral pars defects are present at L5 with grade 1 anterolisthesis. IMPRESSION: 1. Cholelithiasis. 2. The endometrium is thickened with questionable nabothian cysts and ultrasound could be helpful for further evaluation. There is a simple appearing cyst of the right ovary. No free fluid is present. Dictated by: Dictated on workstation # [id number] Dict: 01/13/182114 Trans: 01/13/182131 [id number] Interpreted by: LEO LOWERY MD Electronically signed by: LEO LOWERY MD 01/13/182131 Departure Impression Primary Impression: Nausea & vomiting Qualified Codes: R11.2 - Nausea with vomiting, unspecified Disposition: HOME, SELF-CARE Condition: Stable Departure-Patient Inst. Decision time for Depature: 22:05 Referrals: DAPHNEY SOLIS MD (PCP/Family) Primary Care Physician Patient Instructions: Nausea and Vomiting, Adult Add. Discharge Instructions: 1. Follow-up with [facility] next week. Use the new nausea medication as directed. This comes and suppository form so even if you're nauseated you can still take it. Scripts Promethazine HCl (Promethazine Suppository) 25 Mg Supp.rect 25 MG RC Q6H, #14 SUPP.RECT Prov: LUCY PAIZ APRN 01/13/18 LUCY PAIZ APRN Jan 13, 2018 20:02
[2018-01-13 20:08] LABS: BASOPHILS % (AUTO) 0 % (0-10); EOSINOPHILS # (AUTO) 0.1 10^3/uL (0.0-0.3); EOSINOPHILS % (AUTO) 1 % (0-10); HEMATOCRIT 46 % (35-52); LYMPHOCYTES # (AUTO) 2.6 X 10^3 (1.0-4.0); LYMPHOCYTES % (AUTO) 28 % (12-44); MEAN CORPUSCULAR HEMOGLOBIN 33 PG (25-34); MEAN CORPUSCULAR HGB CONC 35 G/DL (32-36); MEAN CORPUSCULAR VOLUME 94 FL (80-99); MEAN PLATELET VOLUME 9.1 FL (7.4-10.4); MONOCYTES # (AUTO) 0.8 X 10^3 (0.0-1.0); MONOCYTES % (AUTO) 9 % (0-12); NEUTROPHILS # (AUTO) 5.7 X 10^3 (1.8-7.8); NEUTROPHILS % (AUTO) 61 % (42-75); PLATELET COUNT 370 10^3/uL (130-400); RED BLOOD COUNT 4.92 10^6/uL (4.35-5.85); RED CELL DISTRIBUTION WIDTH 12.7 % (10.0-14.5); WHITE BLOOD COUNT 9.2 10^3/uL (4.3-11.0)
[2018-01-13 20:33] LABS: ALANINE AMINOTRANSFERASE 11 U/L (0-55); ALBUMIN 4.7 GM/DL (3.2-4.5); ALKALINE PHOSPHATASE 61 U/L (40-136); BILIRUBIN,TOTAL 0.6 MG/DL (0.1-1.0); BUN/CREATININE RATIO 15; CALCIUM 9.7 MG/DL (8.5-10.1); CARBON DIOXIDE 22 MMOL/L (21-32); CHLORIDE 103 MMOL/L (98-107); CREATININE SERUM 0.81 MG/DL (0.60-1.30); GFR ESTIMATED > 60; GLUCOSE 104 MG/DL (70-105); LIPASE 15 U/L (8-78); POTASSIUM 3.8 MMOL/L (3.6-5.0); SODIUM 140 MMOL/L (135-145); TOTAL PROTEIN 8.2 GM/DL (6.4-8.2)
--- NOTE | 2018-01-13 21:17 | Diagnostic Imaging Report ---
PROCEDURE: CT head without contrast. TECHNIQUE: Multiple contiguous axial images were obtained through the brain without the use of intravenous contrast. INDICATION: Seizure, headache today, altered mental status COMPARISON STUDIES: None FINDINGS: Noncontrast CT scan of the head demonstrates no mass effect, midline shift, hemorrhage or extra-axial fluid collections. Bender-white matter differentiation is normal. The ventricles, cortical sulci and basilar cisterns appear normal. The osseous structures are normal. IMPRESSION: Normal CT scan of the head. Dictated by: Dictated on workstation # [id number]
--- NOTE | 2018-01-13 21:22 | Diagnostic Imaging Report ---
INDICATION: Nausea and vomiting for several days. COMPARISON STUDY: None. FINDINGS: Multiple gallstones are present. Gallbladder is moderately distended, measuring 9.8 cm. No ductal dilatation or inflammatory changes are evident. The liver, spleen, pancreas, adrenal glands and kidneys are normal. The endometrium appears thickened. A 2.3 cm right ovarian cyst is present. There are some questionable nabothian cysts. No ascites, free air or loculated fluid collections are present. There is no abnormal adenopathy. The bowel loops appear normal. Bilateral pars defects are present at L5 with grade 1 anterolisthesis. IMPRESSION: 1. Cholelithiasis. 2. The endometrium is thickened with questionable nabothian cysts and ultrasound could be helpful for further evaluation. There is a simple appearing cyst of the right ovary. No free fluid is present. Dictated by: Dictated on workstation # [id number]
[2018-01-13] MEDS ORDERED: PROMETHAZINE INJ 25 MG/ML (PHENERGAN) AMP IVP ONE (21:30)
[2018-01-13 22:04] LABS: BILIRUBIN,URINE NEGATIVE (NEGATIVE); CLARITY,URINE VERY CLOUDY; COLOR,URINE YELLOW; GLUCOSE, URINE (UA) NEGATIVE (NEGATIVE); KETONES,URINE 2+ (NEGATIVE); LEUKOCYTE ESTERASE ,URINE NEGATIVE (NEGATIVE); NITRITE,URINE NEGATIVE (NEGATIVE); PH,URINE 8 (5-9); PROTEIN,URINE 1+ (NEGATIVE); UROBILINOGEN,URINE NORMAL (NORMAL)
[2018-01-13] MEDS ORDERED: PROM25SU44 RC (22:07)
[2018-01-13 22:25] LABS: BACTERIA,URINE NEGATIVE /HPF; SQUAMOUS EPITHELIAL CELL,UR 0-2 /HPF
[2018-01-13 22:42] VITALS: BP 142/103
== END 2018-01-13 22:45 | disposition home or self-care (01) ==
LOC: EDUNIT# 19:42 → ER 19:44
DX: R11.2 Nausea with vomiting, unspecified (principal); G40.909 Epilepsy, unspecified, not intractable, without status epilepticus
CPT/HCPCS: 36415; 70450; 74177; 80053; 80164; 81000; 83690; 84703; 85025